=== PATIENT | female | born 1950 | race Hispanic/Latino ===

== ENCOUNTER 2016-11-07 11:53 | Inpatient (IN) | payer SELFPAY ==
[~2016-11-07] VITALS: Ht 175.3 cm; Wt 95.5 kg
[2016-11-07 11:53] VITALS: BP 101/88; PULSE 58; RESP 20; O2SAT 96
--- NOTE | 2016-11-07 12:00 | ED.REPORT ---
HPI-Extremity Problem Lower Date of Service Nov 07, 2016 ED Provider: Dev Hendrix MD Patient is a 65 year old female who presents to the ED via EMS s/p tripping and falling, landing on her L hip on concrete just prior to arrival. She complains of L hip pain and trouble standing. She did not hit her head. She denies neck pain, back pain, LOC, headache, numbness, tingling, or any other symptoms. She is not on blood thinners. Nursing Notes Stated Complaint: LEFT HIP PAIN Chief Complaint: Multiple Trauma/Fall Nursing Notes Reviewed: Yes Allergies: Coded Allergies: No Known Allergies (Unverified , 11/07/16) General Time Seen by MD: 11:58 Chief Complaint Hip injury left Hx Obtained From: Patient, Daughter Arrived By: Ambulance Onset Occurred: Just prior to arrival Symptom Duration: Since onset Location: : Hip left Quality: Painful Severity: Current: Severe Severity: Maximum: Severe Exacerbated by: Range of motion Immunizations: Unknown Past Medical History Past Medical History None reported Past Surgical History None reported Smoking History Unknown if Ever Smoker Social History Other Social History: Good social support Review of Systems Review of Systems Note: -tingling Musculoskeletal: Reports: Joint pain, Denies: Back pain, Neck pain Neurologic: Denies: Change LOC, Headache, Numbness Complete sys rev & neg: except as marked. Physical Exam Initial Vital Signs Vital Signs (First) Date Time Temp Pulse Resp B/P Pulse Ox O2 Delivery O2 Flow Rate FiO2 11/07/16 11:53 36.4 58 20 101/88 96 Room Air Initial VS: Reviewed, Vital signs normal Head / Eyes: Atraumatic, Normocephalic Neck: Supple, Full range of motion Respiratory: Breath sounds normal, Clear to auscultation, No respiratory distress Cardiovascular: Regular rate & rhythm, Heart sounds normal, Intact distal pulses Abdomen / GI: Soft, Non-tender, No distention Skin: Warm, Dry Neurologic: Alert, Oriented, Nonfocal Psychiatric: Mood/affect normal, Behavior normal, Normal thought content Lower Extremity / Pelvis / MS: Neurologic intact, Vascular intact Obvious deformity of the L femur with shortening of L leg. Sensation intact bilaterally. Ankle / Foot: No deformity, Neurologic intact, Vascular intact Good DP/PT pulses bilat Interpretation & Diagnostics Lab Results Interpretation Result Diagram: 11/07/16 1202 11/07/16 1202 Test 11/07/16 12:02 White Blood Count 9.9th/mm3 (3.8-10.1) Red Blood Count 4.13mil/mm3 (3.90-5.20) Hemoglobin 13.1g/dL (12.0-15.6) Hematocrit 38.6% (35.0-46.0) Mean Corpuscular Volume 93.5fL (81-100) Mean Corpuscular Hemoglobin 31.7pg (27.0-35.0) Mean Corpuscular Hemoglobin Concent 33.9% (32.0-37.0) Red Cell Distribution Width 12.3% (12.3-15.4) Platelet Count 391bil/L (150-400) Neutrophils (%) (Auto) 54.0% (40-74) Lymphocytes (%) (Auto) 34.7% (14-46) Monocytes (%) (Auto) 7.2% (4-12) Eosinophils (%) (Auto) 3.4% (0-5) Basophils (%) (Auto) 0.5% (0-3) Prothrombin Time 9.9sec (8.1-12.5) Prothromb Time International Ratio 0.93ratio Sodium Level 137mEq/L (134-144) Potassium Level 3.7mEq/L (3.5-5.2) Chloride Level 95mEq/L (97-108) Carbon Dioxide Level 20mmol/L (18-29) Blood Urea Nitrogen 23mg/dL (8-27) Creatinine 0.85mg/dL (0.57-1.00) Estimat Glomerular Filtration Rate 96mL/min (>59) Glucose Level 227mg/dL (60-99) Calcium Level 10.4mg/dL (8.5-10.1) Total Bilirubin 0.3mg/dL (0.0-1.2) Aspartate Amino Transf (AST/SGOT) 25U/L (0-50) Alanine Aminotransferase (ALT/SGPT) 18U/L (0-32) Alkaline Phosphatase 110U/L (25-165) Total Protein 8.0g/dL (6.4-8.4) Albumin 4.6g/dL (3.4-5.0) Parathyroid Hormone (Intact) 54pg/mL (15-65) ECG Interpretation ECG Interpretation: sinus 60 L axis deviation no ST segment changes no T-wave abnL no prior Time: 13:20 Interpreted by: ED physician X-Ray Interpretation Xray Interpretation: IMPRESSION: Comminuted proximal femoral shaft fracture. Dictated by: Santo Clark M.D. on 11/07/2016 at 12:34 Approved by: Santo Clark M.D. on 11/07/2016 at 12:39 X-Ray Ordered: Hip left Interpretation / Wet Read by: Interpret - Radiologist Re-Eval/Medical Decision Med Decision/Clinical Course Patient is a 65 year old female who presents to the ED via EMS s/p tripping and falling, landing on her L hip on concrete just prior to arrival. She complains of L hip pain and trouble standing. She did not hit her head. She denies neck pain, back pain, LOC, headache, numbness, tingling, or any other symptoms. She is not on blood thinners. Here in the emergency department the patient was afebrile with stable vital signs and examination as above. Of note, she has obvious deformity of her left femur with shortening of her left leg. She has neurovascularly intact in the affected extremity with palpable DP and PT pulses. Plain films were obtained as below: Comminuted proximal femoral shaft fracture. Laboratory studies were obtained as below: CBC unremarkable CMP unremarkable Coag studies normal EKG: sinus 60 L axis deviation no ST segment changes no T-wave abnL no prior The above findings were discussed with orthopedic surgery Dr. Lopez. Dr. Lopez evaluated the patient at the bedside and would like to perform operative intervention tomorrow morning. She has requested that the patient be admitted to the hospitalist service. She was discussed with admitting hospitalist accepted for further management. At this time, I see no findings suggestive of other acute traumatic injuries. She did not strike her head or lose consciousness and did not feel that neuro imaging studies are indicated. Patient remained without signs of acute compartment syndrome or neurovascular compromise during my involvement in her care. Re-Evaluation/Progress : Time of Eval: 12:47 Re-Evaluation/Progress Note: Discussed plan for admission. Patient understands and agrees with plan. All questions addressed at this time. Consultation #1: Referral / Consult Name: Cachorro Lopez MD Consulted With: Orthopedic Call Returned at: 12:50 Note: Discussed pt's case. Would like images sent to her. Consultation #2: Referral / Consult Name: Cachorro Lopez MD Call Returned at: 13:25 Note: Agrees to consult. Will take pt to surgery tomorrow. Consultation #3: Referral / Consult Name: Sarai Garcia DO Consulted With: Hospitalist Call Returned at: 13:35 Tool Trouble Shooter: Will see patient, Agrees with eval, Agrees with plan, Accepts admit Note: Discussed pt's case. Accepts admit. Counseled Regarding: Diagnosis, Lab results, Need for admission Discharge & Departure Impression: Primary Impression: Left femoral shaft fracture Encounter type: initial encounter Fracture type: closed Fracture morphology : unspecified fracture morphology Qualified Code: S72.302A - Unspecified fracture of shaft of left femur, initial encounter for closed fracture Additional Impressions: Fall from ground level Posttraumatic pain Disposition: ADMITTED TO HOSPITAL Discharge Condition All VS Reviewed: Yes Condition: Stable Scribe Attestation Portions of this note were transcribed by Margi Paz. I, Dr. Hendrix personally performed the history, physical exam and medical decision-making; I reviewed and confirmed the accuracy of the information in the transcribed note. Signed: Liss Plaza, 11/07/16 Dev Hendrix MD Nov 07, 2016 12:00 MARGI PAZ Nov 07, 2016 12:48
[2016-11-07 12:23] LABS: BASOPHILS % (AUTO) 0.5 % (0-3); EOSINOPHILS % (AUTO) 3.4 % (0-5); MONOCYTES % (AUTO) 7.2 % (4-12); Mean Corpuscular Hemoglobin 31.7 pg (27.0-35.0); Mean Corpuscular Volume 93.5 fL (81-100); Platelet Count 391 bil/L (150-400)
[2016-11-07] MEDS ORDERED: HYDROmorphone 1 mg/mL Inj IVPUSH ONE (12:40)
--- NOTE | 2016-11-07 12:41 | DRSVH ---
PROCEDURE: X-RAY LEFT HIP COMPLETE, MINIMUM TWO VIEWS ([id number]) INDICATIONS: pain/trauma TECHNIQUE: 2 views of the hip were acquired. COMPARISON: None. FINDINGS: Bones: There is a comminuted fracture in the proximal femoral shaft with angulation and displacement. No suspicious bony lesions. The visualized pelvic ring appears intact. Soft tissues: No suspicious soft tissue calcifications or masses. IMPRESSION: Comminuted proximal femoral shaft fracture. Dictated by: Santo Clark M.D. on 11/07/2016 at 12:34 Approved by: Santo Clark M.D. on 11/07/2016 at 12:39
[2016-11-07] MEDS ORDERED: Alum-Mag Hydrox-Simeth 30 mL Suspension PO PRN (12:45)
[2016-11-07 12:57] LABS: INR 0.93 ratio
[2016-11-07 12:59] VITALS: BP 93/54; PULSE 74; RESP 20; O2SAT 99
[2016-11-07] MEDS: Ondansetron 2 mg/mL 2 mL Inj IVPUSH PRN ×2 (13:02→18:13)
[2016-11-07] MEDS ORDERED: HYDROmorphone 0.5 mg/0.5 mL iSecure Syringe IVPUSH ONE (13:25)
[2016-11-07] MEDS ORDERED: HYDROcodone-APAP 5-325 mg Tablet PO PRN (13:40)
[2016-11-07] MEDS ORDERED: Polyethylene Glycol (PEG) 17 Gm Powder PO PRN (13:40)
[2016-11-07] MEDS ORDERED: Glucose 40% Oral Gel 15 Gm Tube PO PRN (13:45)
[2016-11-07 14:08] VITALS: BP 112/60; PULSE 88; RESP 20; O2SAT 93
--- NOTE | 2016-11-07 15:42 | NUR ---
Arrival to 1029 Pt arrival at [address] Lopez met patient in xray. Pt was comfortable on stretcher, denied pain greater than 2/10 but was immediately in severe pain with transfer. 2mg IV Morphine given at this time, pain decreased from 9/10 to 2/10. Dr. Garcia at bedside doing admission so nursing admission delayed at this time. Selby catheter placed for pt comfort/perioperative use. Pt is general diet at this time with plan to have surgery tomorrow. NPO at midnight. Per Dr. Garcia, Losartan to be held in the AM prior to surgery. improvement rn used.
[2016-11-07] MEDS ORDERED: METF850T2 PO (16:01)
[2016-11-07] MEDS ORDERED: OLME20TA3 PO (16:01)
--- NOTE | 2016-11-07 16:23 | DRSVH ---
PROCEDURE: X-RAY RIGHT FEMUR, TWO VIEWS ([id number]) INDICATIONS: Left femur fracture. TECHNIQUE: 2 views of the femur were acquired. COMPARISON: [facility], CR, XR FEMUR 2VW LT, 11/07/2016, 13:58. FINDINGS: Bones: No fractures or dislocations. No suspicious bony lesions. Soft tissues: No suspicious soft tissue calcifications or masses. IMPRESSION: Intact right femur. Dictated by: Santo Clark M.D. on 11/07/2016 at 16:19 Approved by: Santo Clark M.D. on 11/07/2016 at 16:21
--- NOTE | 2016-11-07 16:28 | DRSVH ---
PROCEDURE: X-RAY LEFT FEMUR, TWO VIEWS ([id number]) INDICATIONS: FRACTURE TECHNIQUE: 2 views of the femur were acquired. COMPARISON: [facility], CR, XR HIP 2VW LT, 11/07/2016, 12:06. FINDINGS: Bones: There is a comminuted fracture in the proximal to mid femoral shaft with a large butterfly fr agment and impaction/angulation/displacement. A functional lucency is noted in the proximal tibia. Soft tissues: No suspicious soft tissue calcifications or masses. IMPRESSION: 1. Comminuted proximal to mid femoral shaft fracture. 2. No additional lucency in the proximal tibia. Cannot rule out a fracture. Recommend 2 knee x-ray fu rther evaluation. Dictated by: Santo Clark M.D. on 11/07/2016 at 16:21 Approved by: Santo Clark M.D. on 11/07/2016 at 16:26
[2016-11-07] MEDS ORDERED: Heparin 5,000 Unit/mL Inj SUBQ SCH (16:30)
--- NOTE | 2016-11-07 16:45 | PCM.HPMED ---
Subjective Date of Service Nov 07, 2016 Primary Provider: Admitting Physician: Primary Care Physician: Trudy Attending Physician: Admit Status: From the Emergency Department, Admit to Red Team Chief Complaint: L Hip Fracture History of Present Illness: 65-year-old Mrs. John with past medical history of hypertension and diabetes, possible sleep apnea is presenting to the ER after suffering a fall this morning at 11 AM she states that she was trying to get up this stairs to go to a sidewalk when her legs gave in and she fell. She has had falls before but never this bad. She has never had fractures the exception of a coccygeal fracture during her second 30 years ago. She is endorsing severe pain as she was just moved from the ER to her hospital floor. She had to be medicated with morphine 2 mg for this interview to happen. This interview was done with the help of a paint factory worker online. Patient states she does not have any altered sensation, she does feel that her left foot is a little bit colder than the right foot. She feels that her hypertension and diabetes are well controlled on her current medications, she has taken the am medications. She denies any heart history, thyroid disease. She does snore according to her daughter and may have sleep apnea. In the ER x-ray of left hip showed a comminuted proximal femoral shaft fracture. Films of both her femur are taken but results are pending at this time. Her blood glucose was 227 hemoglobin is 9.9 blood pressure was on the lower side 93/54. She was given given 1 mg of Dilaudid for pain control. Patient states that she has recently gotten over a cold in the September. Patient is admitted to the red team with orthopedic consult for management of left hip fracture Review of Systems: Complete review of systems performed, pertinent positives and negatives per history of present illness, all other systems reviewed and are negative. Allergies Coded Allergies: No Known Allergies (Unverified , 11/07/16) Home Medications Metformin, Benicar PMH Diabetes, hypertension, possible sleep apnea, Coccygeal fracture did not require surgical intervention Surgical History breast fibroid removal, tonsillectomy Family History Mother is alive and healthy, dad then the patient was 8 months old with kidney and heart disease Daughter states that they have extensive history of kidney disease in the family Social History Occupation: retired medical records Hx Alcohol Use: No Hx Substance Use: No Hx Tobacco Use: No Smoking Status: Unknown if Ever Smoker Living Arrangement: with Family Additional Information 1 son in [place], Daugther lives in , Pt is from [place] Exam Vital Signs Vital Sign - Last Date Time Temp Pulse Resp B/P Pulse Ox O2 Delivery O2 Flow Rate FiO2 11/07/16 12:59 36.4 74 20 93/54 99 Room Air Exam General: No acute distress, appropriately interactive HEENT: Normocephalic, atraumatic. External ears without defect. Pupils equal, round, and reactive to light and accommodation. Anicteric sclerae, moist conjunctivae, and no lid lag. Oropharynx free of erythema and cobble stoning with moist mucosa. Neck: Large neck Supple with full range of motion. No jugular venous distension. No bruits. No lymphadenopathy or thyromegaly. Cardiovascular: Regular rate and rhythm with no murmurs, rubs, or gallops appreciated Pulmonary: Clear to auscultation bilaterally with no crackles, wheezes, or rhonchi. Normal respiratory effort with no use of accessory muscles.. On the anterior auscultation was done due to pain and patient's inability to get up Abdomen: Bowel tones present. Soft, mildly tender diffusely, nondistended. No hepatosplenomegaly or masses appreciated. Extremities: No clubbing, cyanosis, edema, or lymphadenopathy appreciated.. She is moving her right extremity slightly without pain, left extremity is externally rotated Skin: Normal temperature, turgor, and texture; no rash, ulcers, or subcutaneous nodules appreciated. Neurological: No focal deficits, no known sensory impairment Psychiatric: Normal mood and affect. Alert and oriented to person, place, and time. Vascular: Pedal pulses are lower in the left foot Lab and Diagnostics Result Diagram: 11/07/16 1202 11/07/16 1202 Assessment & Plan This is a 65-year-old pleasant female from [place] who was visiting her daughter in the when she suffered a left femur fracture. She is being admitted with orthopedic consult with Dr. Lopez. She is expected to undergo an operation early tomorrow a.m. Assessment #1 left hip fracture, present on admission acute -- X-ray showed comminuted, proximal, femoral shaft fracture -- Pain control with morphine 2-4 mg every 3 hours as needed for severe pain -- Hydrocodone acetaminophen every 4 hours for moderate pain -- Excessive femur right and left are ordered and result is pending -- Consult orthopedics, a plan to do surgery tomorrow a.m. -- Selby catheter to gravity -- Type and screen has done -- Crossmatched 2 units -- No heparin per Dr. Lopez, as she plans to take patient to the OR early in the a.m. -- Nothing by mouth after midnight, hold hypertension meds before surgery -- Social work referral Assessment #2 chronic diabetes uncontrolled -- Pt had elevated BG at admission -- Hold metformin by mouth at home medication -- No sliding scale -- A1c is ordered Assessment #3 hypertension chronic presumed stable -- Patient has taken am medications -- We will hold Benicar to after the surgery Assessment #4 possible sleep apnea, chronic present on admission -- We will watch for oxygen desaturation nighttime especially with pain meds on board -- Continue to monitor CODE STATUS: Patient was unable to decide, which makes her full code Alternate decision-maker: Daughter High risk medication: Morphine IV Disposition: Patient is probably going to need SNIF placement for recovery following her surgery, however she is not from the [facility]. This may present with some issues with placement. We will consult social work Pain Evaluation: Adequate Pain Control Resuscitation Status: CPR: Attempt Resuscitation (patient was unable to answer the question) Time spent 45 minutes Sarai Garcia DO Nov 07, 2016 13:40
[2016-11-07] MEDS: 0.9% Sodium Chloride 1,000 ML IV SCH (16:46)
[2016-11-07 17:02] LABS: APPEARANCE,URINE CLEAR (CLEAR,HAZY); COLOR,URINE YELLOW (YELLOW); OCCULT BLOOD,URINE NEGATIVE (NEGATIVE); UROBILINOGEN,URINE NORMAL (NORMAL)
--- NOTE | 2016-11-07 17:22 | CONS ---
[address] [address] CONSULTATION REPORT PATIENT: CHERYL ROSEN : 1950 MR#: [id number] ADMIT: 11/07/2016 JOB ID: [id number] ORTHOPEDIC CONSULTATION: DATE OF SERVICE: 11/07/2016 CPT CODE: 75201-77 (decision for surgery) CHIEF COMPLAINT: This is a 65-year-old, Israeli female who was visiting relatives in [place], and had a ground level fall today, sustaining a comminuted left proximal one-third to midshaft femoral fracture. There was no actual loss of consciousness. The patient is a non-insulin dependent diabetic. I was asked to see this patient in Orthopedic consultation by Dr. Sarai Garcia from the hospital service and Dr. Hendrix from the emergency department. Medical history is somewhat limited and will need to try and obtain some more information from the daughter who does speak Russian. Her daughter states that she does take a pill for her diabetes. PAST MEDICAL HISTORY: They did not report any particular surgery. She evidently does have good social support here while visiting relatives and she also has social support in [employer]. REVIEW OF SYSTEMS: HEENT: No headache or dizziness. No blurring of vision. Respiratory: No shortness of breath. Cardiovascular: No chest pain. GI: No nausea or vomiting. : No dysuria. Musculoskeletal: Left femur pain, status post fracture. Hematologic: No easy bleeding or bruising. Psychiatric: No obvious anxiety or depression. PHYSICAL EXAMINATION: A 175 cm female, 95 kg. The patient is lying in bed. Left leg is shortened and internally rotated. The fracture is closed. Peripheral pulses are full. Motor and sensory testing intact. LABORATORY TESTING: White count 9900. Hemoglobin 13.1, hematocrit 38.6. Sodium 137, potassium 3.7, chloride 95, CO2 20, BUN 23, creatinine 0.85. Random glucose at 227. Calcium at 10.4. Liver function tests within normal limits. PT 9.9, INR 0.93. Platelet count 391,000. IMAGING: X-rays show that she has a comminuted left proximal one-third to midshaft femoral fracture. IMPRESSION: Comminuted left midshaft to proximal one-third femoral shaft fracture with a large butterfly fragment. PLAN: The patient will be kept n.p.o. after midnight. We will plan for open reduction and internal fixation, with a locked femoral harvey tomorrow. She will need preoperative hydration and control of her diabetes. The patient is aware through [place] interpretation of the risks for bleeding, infection, pain, and stiffness, as well as the fact that this fracture may take quite some time to heal. The goal will be to transfix the fracture so that she may be mobilized out of bed to chair. She will receive preoperative IV Ancef 2 g IV as well as plans for TXG preoperatively just before surgery and at the end of the surgery to decrease the risk for bleeding. Will have the patient sign a surgical consent in [place]. cc: [facility] Orthopedics
[2016-11-07] MEDS: Insulin LISPRO 300 Unit/3 mL Inj SUBQ SCH ×2 (17:28→22:05)
--- NOTE | 2016-11-07 18:07 | DRSVH ---
PROCEDURE: X-RAY CHEST ONE VIEW, PORTABLE ([id number]) INDICATIONS: PRE OP TECHNIQUE: One view of the chest was acquired. COMPARISON: None. FINDINGS: Surgical changes and devices: None. Lungs and pleura: Mild interstitial prominence. No pleural effusions or pneumothorax. Lungs are jose ar. Mediastinum: Mediastinal contours appear normal. Heart size is normal. Bones and chest wall: No suspicious bony lesions. Overlying soft tissues appear unremarkable. IMPRESSION: No acute cardiopulmonary disease. Dictated by: aSnto Clark M.D. on 11/07/2016 at 18:05 Approved by: Santo Clark M.D. on 11/07/2016 at 18:05
[2016-11-07 19:32] VITALS: BP 128/73; PULSE 96; RESP 17; O2SAT 93
[2016-11-07 21:15] VITALS: BP 105/71; PULSE 103; RESP 18; O2SAT 92
[2016-11-08] VITALS (14 sets, daily range): BP systolic 107–120; BP diastolic 58–79; PULSE 73–100; RESP 12–18; O2SAT 94–99
--- NOTE | 2016-11-08 06:01 | NUR ---
Pain/ Education/ Ortho Checks Pt. was given education on ortho checks, and education on NPO status at midnight. Tamazight interperter used during communication. Pt. reported pain, and IV morphine given and effective. Will continue to monitor.
[2016-11-08 06:28] LABS: BASOPHILS % (AUTO) 0.2 % (0-3); EOSINOPHILS % (AUTO) 1.1 % (0-5); MONOCYTES % (AUTO) 7.3 % (4-12); Mean Corpuscular Hemoglobin 32.2 pg (27.0-35.0); Mean Corpuscular Volume 94.6 fL (81-100); Platelet Count 296 bil/L (150-400)
[2016-11-08] MEDS ORDERED: fentaNYL-PF 50 mCg/mL 2 mL Inj ONE (08:16)
[2016-11-08] MEDS ORDERED: HYDROmorphone 1 mg/mL Inj ONE (08:16)
[2016-11-08] MEDS ORDERED: Phenylephrine/NS 100 mCg/mL 10 mL Syringe IVPUSH ONE (08:21)
[2016-11-08] MEDS ORDERED: Rocuronium 10 mg/mL 5 mL Inj ONE (08:21)
[2016-11-08] MEDS ORDERED: Propofol 10,000 mCg/mL 20 mL Inj ONE (08:21)
[2016-11-08] MEDS ORDERED: Ondansetron 2 mg/mL 2 mL Inj ONE (08:21)
[2016-11-08] MEDS ORDERED: Succinylcholine Chloride 20 mg/mL 5 mL Inj ONE (08:21)
[2016-11-08] MEDS: Insulin LISPRO 300 Unit/3 mL Inj SUBQ SCH ×4 (08:26→22:00)
[2016-11-08] MEDS: 0.9% Sodium Chloride 1,000 ML IV SCH (09:37)
--- NOTE | 2016-11-08 09:44 | DRSVH ---
PROCEDURE: X-RAY LEFT KNEE, THREE VIEWS ([id number]) INDICATIONS: PAIN/ INTERNALLY ROTATED TECHNIQUE: 4 views of the knee were acquired. COMPARISON: None. FINDINGS: Bones: No fractures or dislocations about the knee itself. The patient's known proximal femoral frac ture is partially seen. Well corticated air calcification adjacent to the lateral epicondyle consiste nt with a benign congenital finding or the sequelae of remote trauma. Soft tissues: Small joint effusion. No suspicious soft tissue calcifications. IMPRESSION: Small joint effusion. Partially visualized proximal left femoral fracture. Dictated by: Vinay Gómez M.D. on 11/08/2016 at 9:40 Approved by: Vinay Gómez M.D. on 11/08/2016 at 9:43
--- NOTE | 2016-11-08 09:46 | DRSVH ---
PROCEDURE: X-RAY FEMUR, 1 VIEW LEFT INDICATIONS: PRE OPERATIVE CHECK TECHNIQUE: Single view of the femur were acquired. COMPARISON: None. FINDINGS: Bones: Improved alignment of a complex comminuted proximal left femoral metaphyseal fracture with med ial distraction of a butterfly fragment and medial angulation of the distal fragment. Soft tissues: No suspicious soft tissue calcifications or masses. IMPRESSION: Improved alignment of a proximal left femoral metaphyseal fracture. Dictated by: Vinay Gómez M.D. on 11/08/2016 at 9:43 Approved by: Vinay Gómez M.D. on 11/08/2016 at 9:44
--- NOTE | 2016-11-08 10:20 | PCM.HPANE ---
Patient Data Surgeon Admitting Provider:Sarai Garcia DO Attending Provider:Sarai Garcia DO Primary Care Physician:Trudy Other Provider: Reason for Visit Left Femur Fracture Ht/WT & BMI Height (Feet): 5 Height (Inches): 9.00 Weight (Kilograms): 95.450 Body Mass Index 31.17 Allergies Coded Allergies: No Known Allergies (Unverified , 11/07/16) Past Anesthesia History Anesthesia History: Denies:: Anesthesia Reactions Diabetes History Hx Diabetes?: No Current Bedside Blood Glucose: 238 MRSA MRSA: No Medications Reported Medications Olmesartan (Benicar)20 Mg [id number] Mg PO DAILY Ref 0 11/07/16 Metformin 850 Mg [id number] Mg PO BID Ref 0 11/07/16 History History of ENT Problems?: No HEENT History: Denies:: Cataracts Dysphagia Glaucoma Sinus Problem Denture Type: None Teeth Condition: Tooth Decay Inflamed Gums Missing Teeth Hx of Heart Problems?: No Cardiovascular History: Denies:: Congestive Heart Failure Hypertension Hx of Respiratory Problem?: No Respiratory History: Denies:: Asthma Pneumonia Tuberculosis Hx Neurologic Problems?: No Neurological History: Denies:: Alzheimer's Disease CVA Dementia Dizziness Headaches Seizures Hx of GI Problems?: No Other History/Comment Uncontrolled DM. Glusose > 280 early am prior to transport to OR. 2 units of Insulin were given. Glucose rechecked immediately prior to OR, 237. Regular insulin 5 units given SQ after induction, during draping. Hx of Problems?: No Genitourinary History: Denies:: Kidney Stones Urinary Tract Infection Female Hx: Positive for:: Problems with Breasts? (FIBROID RIGHT BREAST) Denies:: Currently Endometriosis Pelvic Inflammatory Hx Musculoskeletal Problems?: No Musculoskeletal History: Denies:: Back Injury Musculoskeletal Trauma Hx of Psycho/Social Problems?: No Psycho Social History: Denies:: Anxiety Bipolar Disorder Hx Depression Suicide Attempt Hx Surgeries?: No Hx Any Other Health Problems?: No Other History: Denies:: Cancer Hospitalization Thyroid Disease History Blood Transfusions: Positive for:: Accept Blood Products? Denies:: Blood Transfuse Reaction Blood Transfusions Hx Diabetes: NoBedside Blood Glucose: 238 Occupation: retired medical records Hx Alcohol Use: NoHx Substance Use: No Smoking Status: Unknown if Ever Smoker Stop/Bang Treated for Sleep Apnea?: No Do You Have a CPAP Machine?: No S-Snoring: Do You Snore Loudly: Yes T-Tired: feel tired, fatigued: No O-Obsered: Observed not breath: No P-Blood Pressure: treated: Yes B- Body Mass Index > 35 kg/m2: No A- Age over 50: Yes N- Neck Large Circumference: No G- Gender Male: No TIFFANY Total Score: 2 TIFFANY Risk Assessment: High Risk, =/>3 Yes Risk Assessment Category Category 1A: Patient has history of documented sleep apnea, and HAS NOT received any narcotic, sedative or anesthesia administration during this stay. Category 1B: Patient has history of documented sleep apnea, and HAS received any narcotic , sedative or anesthesia administration during this stay Category 2: Patient has SUSPECTED Obstructive Sleep Apnea, and HAS received any narcotic , sedative or anesthesia administration during this stay. Category 3: Patient has SUSPECTED Obstructive Sleep Apnea and HAS NOT received narcotic, sedative or anesthesia administration during this stay. Category 4: Outpatient in Procedural Areas with known sleep apnea or who screen positive for High Risk via the STOP/BANG questionnaire. Exam Exam Vital Signs Vital Signs Date Time Temp Pulse Resp B/P Pulse Ox O2 Delivery O2 Flow Rate FiO2 11/08/16 09:34 36.8 81 18 120/75 96 Room Air 11/08/16 06:15 36.7 86 16 120/74 95 Room Air General Appearance: Alert, Oriented X3, Cooperative, No Acute Distress HEENT/AIRWAY: MP 2, Neck Movement Lungs: Clear to Auscultation, Normal Air Movement Heart: Exam Unremarkable, Regular Rate/Rhythm, No Murmurs/Rubs/Gallops Meds/Labs/Diagnostics Admission Meds Current Medications Hydromorphone HCl 1 mg 1 mg ONCE ONCE IVPUSH Last administered on 11/07/16 12 :50; Start 11/07/16 at 12:40; Stop 11/07/16 at 12:41; Status DC Sodium Chloride (Normal Saline) 1,000 ml @ 50 mls/hr Q20H IV Last administered on 11/07/16 16:46; Start 11/07/16 at 13:37 Insulin Human Lispro (HumaLOG Insulin Inj) Nutritional Dose to be given pr... [facility] SUBQ Last administered on 11/08/16 08:26; Start 11/07/16 at 17:30 Bedside Blood Glucose: 238 Labs Test 11/07/16 12:02 8/26/17 13:45 11/07/16 15:35 11/08/16 06:00 Prothrombin Time 9.9sec (8.1-12.5) Prothromb Time International Ratio 0.93ratio Parathyroid Hormone (Intact) 54pg/mL (15-65) Urine Color Yellow (YELLOW) Urine Appearance Clear (CLEAR,HAZY) Urine pH 5.0 (5.0-8.0) Urine Specific Riparius 1.030 (1.003-1.035) Urine Protein Negativemg/dL (NEG,TRACE) Urine Glucose (UA) 100mg/dL (NEGATIVE) Urine Ketones Tracemg/dL (NEGATIVE) Urine Occult Blood Negative (NEGATIVE) Urine Nitrite Negative (NEGATIVE) Urine Bilirubin Negative (NEGATIVE) Urine Urobilinogen Normalmg/dL (NORMAL) Urine Leukocyte Esterase Negative (NEGATIVE) Urine RBC 0-2/hpf (0-2) Urine WBC 0-5/hpf (0-5) Urine Epithelial Cells Few/hpf (NONE-MOD) Urine Crystals None seen (NONE SEEN) Urine Bacteria None/hpf (NONE-FEW) Urine Hyaline Casts None/lpf (NONE) Urine Granular Casts None seen (NONE SEEN) Urine Waxy Casts None seen (NONE SEEN) Urine Red Blood Cell Casts None seen (NONE SEEN) Urine White Blood Cell Casts None seen (NONE SEEN) Urine Mucus None seen (None Seen) Urine Trichomonas None seen (NONE SEEN) Urine Yeast None (NONE SEEN) Urinalysis Comment None Urine Culture Reflexed Not indicated White Blood Count 9.5th/mm3 (3.8-10.1) Red Blood Count 3.51mil/mm3 (3.90-5.20) Hemoglobin 11.3g/dL (12.0-15.6) Hematocrit 33.2% (35.0-46.0) Mean Corpuscular Volume 94.6fL (81-100) Mean Corpuscular Hemoglobin 32.2pg (27.0-35.0) Mean Corpuscular Hemoglobin Concent 34.0% (32.0-37.0) Red Cell Distribution Width 12.1% (12.3-15.4) Platelet Count 296bil/L (150-400) Neutrophils (%) (Auto) 78.0% (40-74) Lymphocytes (%) (Auto) 13.1% (14-46) Monocytes (%) (Auto) 7.3% (4-12) Eosinophils (%) (Auto) 1.1% (0-5) Basophils (%) (Auto) 0.2% (0-3) Sodium Level 131mEq/L (134-144) Potassium Level 4.7mEq/L (3.5-5.2) Chloride Level 94mEq/L (97-108) Carbon Dioxide Level 24mmol/L (18-29) Blood Urea Nitrogen 24mg/dL (8-27) Creatinine 0.81mg/dL (0.57-1.00) Estimat Glomerular Filtration Rate 101mL/min (>59) Glucose Level 277mg/dL (60-99) Calcium Level 9.5mg/dL (8.5-10.1) Total Bilirubin 0.4mg/dL (0.0-1.2) Aspartate Amino Transf (AST/SGOT) 21U/L (0-50) Alanine Aminotransferase (ALT/SGPT) 15U/L (0-32) Alkaline Phosphatase 87U/L (25-165) Total Protein 6.7g/dL (6.4-8.4) Albumin 4.1g/dL (3.4-5.0) Plan Impression Patient chart reviewed, patient interviewed and anesthestic plan with risks, benefits, and alternatives discussed, and informed consent obtained. NPO per Anesth. Guidelines: Yes ASA Physical Status: ASA3 Severe Disease Anesthetic Plan: GA Bene/Risks/Altern/Consents: Yes HP Complete Prior to Induction: Yes Odell Rushing MD Nov 08, 2016 10:20
[2016-11-08] MEDS ORDERED: Lactated Ringer's 1,000 ML IV ONE (10:34)
[2016-11-08] MEDS ORDERED: Bupivacaine-MPF 0.5% 30 mL Inj INFILTRATE ONE (11:52)
--- NOTE | 2016-11-08 11:56 | NUR ---
Off Unit to OR Patient off unit at approximately 1000 via bed, informed consent in Macedonian, signed and in chart. Pain well managed with 4mg IV morphine prior to positioning for x-ray.
[2016-11-08] MEDS ORDERED: Tranexamic Acid Inj 1,000 MG in 0.9% Sodium Chloride 100 ML IV ONE ×2 (12:00→15:00)
[2016-11-08] MEDS ORDERED: Lactated Ringer's 500 ML IV PRN (12:01)
[2016-11-08] MEDS ORDERED: HYDROmorphone 1 mg/mL Inj IVPUSH PRN ×2 (12:05→16:00)
[2016-11-08] MEDS ORDERED: EPHEDrine Sulfate 50 mg/mL Inj IVPUSH PRN (12:05)
[2016-11-08] MEDS ORDERED: Atropine 0.4 mg/mL Inj IVPUSH PRN (12:05)
[2016-11-08] MEDS ORDERED: MetoCLOpramide 5 mg/mL 2 mL Inj IVPUSH PRN (12:05)
[2016-11-08] MEDS ORDERED: Labetalol 5 mg/mL 20 mL Inj IV PRN (12:05)
[2016-11-08] MEDS ORDERED: Phenylephrine 10,000 mCg/mL Inj IVPUSH PRN (12:05)
[2016-11-08] MEDS ORDERED: Ondansetron 2 mg/mL 2 mL Inj IVPUSH PRN ×2 (12:05→16:00)
[2016-11-08] MEDS ORDERED: fentaNYL-PF 50 mCg/mL 2 mL Inj IVPUSH PRN (12:05)
[2016-11-08] MEDS ORDERED: Dexamethasone 4 mg/mL Inj IVPUSH PRN (12:05)
--- NOTE | 2016-11-08 13:45 | PCM.PNMED ---
Subjective Date of Service Nov 08, 2016 Subjective Patient is seen and examined. She is more alert and awake this a.m. she has no pain in her left knee other than her chronic arthritic pain in the joint. She understands that she will be undergoing a surgery, and she has suffered a large fracture. She has no other questions. Daughter was present in the room as well as Dr. Lopez, daughter's questions were answered Exam Vital Signs Vital Sign - Last Date Time Temp Pulse Resp B/P Pulse Ox O2 Delivery O2 Flow Rate FiO2 11/08/16 06:15 36.7 86 16 120/74 95 Room Air Intake and Output 11/07/16 11/07/16 11/08/16 Cumulative From/Thru 15:00 23:00 07:00 11/07/16 11:53 - 11/08/16 06:13 Intake Total 400 ml 677 ml 1077 ml Output Total 0 ml 0 ml Balance 400 ml 677 ml 1077 ml Intake Oral 400 ml 400 ml IV Total 677 ml 677 ml Output Urine Total 0 ml 0 ml Lab and Diagnostics Result Diagram: 11/08/16 0600 11/08/16 0600 Assessment & Plan This is a 65-year-old pleasant female from [place] who was visiting her daughter in the when she suffered a left femur fracture. She is being admitted with orthopedic consult with Dr. Lopez. She is expected to undergo an operation early tomorrow a.m. Assessment #1 left hip fracture, present on admission acute -- X-ray showed comminuted, proximal, femoral shaft fracture -- Pain control with morphine 2-4 mg every 3 hours as needed for severe pain -- Hydrocodone acetaminophen every 4 hours for moderate pain -- Excessive femur right and left are ordered and result is pending -- Consulted orthopedics, a plan to do surgery 11/08 -- Selby catheter to gravity -- Type and screen has done -- Crossmatched 2 units -- No heparin per Dr. Lopez, as she plans to take patient to the OR early in the a.m. -- Nothing by mouth diet -- Social work referral is placed -- Discussed x-ray of the left femur, Dr. Lopez is made aware of the recommendation to do 2 view knee x-ray. Femoral x-ray of the right and left showed no concern for acute fractures other than the one that was noted initially in the proximal femoral shaft Assessment #2 chronic diabetes uncontrolled -- Pt had elevated BG at admission -- Hold metformin by mouth at home medication -- sliding scale insulin -- A1c is ordered Assessment #3 hypertension chronic presumed stable -- Patient has taken am medications -- We will hold Benicar till after the surgery Assessment #4 possible sleep apnea, chronic present on admission -- We will watch for oxygen desaturation nighttime especially with pain meds on board -- Continue to monitor CODE STATUS: Patient was unable to decide, which makes her full code Alternate decision-maker: Daughter High risk medication: Morphine IV Disposition: Patient is probably going to need SNIF placement for recovery following her surgery, however she is not from the [facility]. This may present with some issues with placement. We will consult social work Pain Evaluation: Adequate Pain Control Resuscitation Status: CPR: Attempt Resuscitation (patient was unable to answer the question) Time spent 25 minutes Sarai Garcia DO Nov 08, 2016 08:41
[2016-11-08] MEDS: Lactated Ringer's 1,000 ML IV SCH ×2 (13:58→15:11)
--- NOTE | 2016-11-08 15:13 | NUR ---
Social Work- Initial Assessment Data: See Initial Assessment and Advance Directive Intervention for additional information. Order has been received for SNF placement at discharge. SW acknowledges order. SNF placement will be difficult for pt as she is from [place] and does not have insurance. Pt is a Uzbek speaking 65 year old female admitted 11/07/16 for left femur fracture per H&P. Pt has no insurance. Pt has no PCP. Pt has been visiting her daughter in [place] since July and was planning to return to [place] late November. Pt has been staying with her daughter in a home with no steps to enter. Pt's readmit risk score is not listed at this time. LIBERTAD met with pt's daughter Alivia [phone] at bedside regarding discharge plan, SW role explained. Pt was in surgery at this time. Pt's capacity for self-care assessed. Pt resides in [place] in a home alone. Pt is independent with ADLs and self-care at baseline. Pt uses no DME at baseline and only has crutches available for use. Pt does not drive. Pt has no history with HH services. Pt has no history with SNF services. Pt has no DPOA on file. Pt's daughter is the designated decision maker if necessary. SW discussed SNF recommendation and typical plan of care after a fracture. SW explained the barriers to pt's SNF placement regarding insurance. SW provided estimated private pay cost of $8,000-$10,000 dollars for a month of care at a facility. Informed pt's daughter that it is typically required to pay up front for these services. Pt's daughter has financial concerns. Provided sarah care application in Cuban and Uzbek. Also oriented pt's daughter to Patient Financial Services in the hospital, encouraged pt's daughter to set up an appointment and discuss financial plan. Daughter agreeable. SW provided Discharge planning Checklist and requested that pt contact [employer] if needs identified. SW provided phone number on whiteboard. PT will likely see pt after surgery. Pt's daughter agreeable. SW will continue to follow for d/c planning needs. Assessment: Pt who is independent with ADLs and self-care, who will likely need rehab after surgery. Plan: PT to evaluate pt after surgery. Pt will require private pay SNF, unclear if pt's daughter has the funds for this at this time. Pt's daughter aware of private pay costs. Provided sarah care application in Cuban and Uzbek. Also oriented pt's daughter to Patient Financial Services. SW will continue to follow for d/c planning needs. LOLA Estrada Addendum: 11/08/16 at 1521 by STEVE HERNANDEZ SS Amended: Links added.
--- NOTE | 2016-11-08 15:47 | DRSVH ---
PROCEDURE: X-RAY LEFT FEMUR, TWO VIEWS ([id number]) INDICATIONS: LEFT FEMUR REPAIR WITH C-ARM TECHNIQUE: 6 views of the femur were acquired. COMPARISON: [facility], , XR FEMUR 2VW LT, 11/07/2016, 13:58. FINDINGS: 6 images obtained with a mobile image intensifier demonstrating intramedullary harvey fixation and femor al neck screw placement across a proximal left femoral neck fracture. IMPRESSION: Mobile image intensifier images demonstrating surgical fixation of a left femoral neck fr acture. Dictated by: Vinay Gómez M.D. on 11/08/2016 at 15:45 Approved by: Vinay Gómez M.D. on 11/08/2016 at 15:46
[2016-11-08] MEDS ORDERED: Magnesium Hydroxide 10 mL Oral Concentration PO PRN (16:00)
[2016-11-08] MEDS ORDERED: diphenhydrAMINE 25 mg Capsule PO PRN (16:00)
[2016-11-08] MEDS ORDERED: HYDROcodone-APAP 7.5-325 mg Tablet PO PRN (16:00)
[2016-11-08] MEDS ORDERED: Polyethylene Glycol (PEG) 17 Gm Powder PO PRN (16:00)
[2016-11-08] MEDS ORDERED: Sodium Biphos-Phos 133 mL Enema RECTAL PRN (16:00)
[2016-11-08] MEDS: Sodium Chloride LOK Flush 10 mL Syringe IV SCH (16:30)
--- NOTE | 2016-11-08 16:40 | DRSVH ---
PROCEDURE: X-RAY LEFT FEMUR, TWO VIEWS ([id number]) INDICATIONS: POST PROTHESIS TECHNIQUE: 5 views of the femur were acquired. COMPARISON: [facility], CR, XR FEMUR 2VW LT, 11/08/2016, 11:21. [facility], CR, XR FEMUR 2VW LT, 11/07/2016, 13:58. FINDINGS: Bones: Interval placement of a left intramedullary femoral harvey and femoral neck screw fixation across a complex proximal left femoral metaphyseal fracture. Fracture alignment is now near anatomic. Soft tissues: No suspicious soft tissue calcifications or masses. IMPRESSION: Interval surgical fixation of a proximal left femoral metaphyseal fracture. Dictated by: Vinay Gómez M.D. on 11/08/2016 at 16:37 Approved by: Vinay Gómez M.D. on 11/08/2016 at 16:38
[2016-11-08] MEDS ORDERED: Insulin GLARgine 100 Unit/mL Syringe SUBQ SCH (17:04)
--- NOTE | 2016-11-08 18:01 | PCM.ANEP1 ---
Post Anesthesia PACU Phase 1 Assessment Vital Signs Vital Signs Date Time Temp Pulse Resp B/P Pulse Ox O2 Delivery O2 Flow Rate FiO2 11/08/16 17:07 84 11/08/16 16:51 36.7 80 16 114/74 94 Room Air 2.00 11/08/16 16:45 Supplement Oxygen 11/08/16 16:23 79 13 108/60 98 Nasal Cannula 2 11/08/16 16:13 87 14 114/58 98 Simple Mask 8 11/08/16 16:08 85 12 107/65 98 Simple Mask 8 11/08/16 16:04 92 16 111/71 98 Simple Mask 8 11/08/16 15:55 93 17 112/71 97 Simple Mask 8 11/08/16 15:48 37.1 93 17 111/64 97 Simple Mask 8 Anesthetic Administered: GA Level of Alertness: Awake, talking HILLMAN's with Equal Strength: No (surgery on left leg) Pain: No Pain Scale Score: 0 Nausea or Vomiting: No CV Function & Hydration Stable: Yes Airway Device: Endotrachial Tube Oxygen Delivery: Room Air Lungs: Clear to Auscultation, Normal Air Movement Dermatome Level: Full Sensation PACU Phase 2 Assessment Complications: No Follow up Care: N/A Patient Instructions Provided: Yes Odell Rushing MD Nov 08, 2016 18:01
--- NOTE | 2016-11-08 18:37 | NUR ---
ON UNIT FROM OR Patient back from OR at 1645 via bed. Sleepy but able to arouse with light touch, vocal commands. No pain, abx given in OR at 1520. Vital signs stable. 2L nasal cannula at 94% SCD on right leg, head of the bed 30 degrees, pulse ox in place. Blood sugar 219, 10 lantus given along with sliding scale. Placed on tele SR 80s. Per report bone specimen sent for pathology. Per Dr. Jessica hoyt and SCDs on unaffected leg only. Scobey checks within normal limits. Family at bedside.
--- NOTE | 2016-11-08 19:04 | OP ---
[address] [address] OPERATIVE REPORT PATIENT: CHERYL ROSEN : 1950 MR#: [id number] ADMIT: 11/07/2016 JOB ID: [id number] DATE OF SURGERY: 11/08/2016 SURGEON: Cachorro Lopez MD MEDIA TRAFFIC MANAGER: Eleazar Betts PA-C. Eleazar Betts was an integral portion of the procedure to help maintain with the reduction, traction and exposure for the procedure. PREOPERATIVE DIAGNOSIS(ES): Comminuted left proximal 3rd to mid shaft femoral fracture. ICD 10 code is S72.352A. POSTOPERATIVE DIAGNOSIS(ES): Comminuted left proximal 3rd to mid shaft femoral fracture. ICD 10 code is S72.352A. PROCEDURE: Open reduction, internal fixation, comminuted left proximal 1/3 to midshaft femoral fracture with large butterfly fragment. IMPLANTS UTILIZED: Synthes trochanteric femoral nail, 11 mm diameter x 360 mm length, 125 degree angle, 80 mm helical blade and a 40 and 50 mm distal locking interlock screws. INDICATIONS: This 65-year-old, female from [place] lives with her family, tripped and fell while walking, sustaining a comminuted left proximal 1/3 to midshaft femoral fracture. The patient has diabetes that is not insulin dependent, but her diabetes is not well controlled. Medical history is somewhat limited since the patient does not communicate medical issues routinely with her family in the [place]. ESTIMATED BLOOD LOSS: 400 mL. DRAINS: None. INTRAOPERATIVE ISSUES: The patient did have some issues with some hypotension that was corrected. She also had some EKG abnormalities that evidently also corrected, but she has been placed on telemetry postoperatively. Sponge and needle count correct. SPECIMENS: I did send a small specimen of bone from one of the guide pins to pathology to rule out potential pathologic fracture. PROCEDURE IN DETAIL: Under adequate general anesthesia, the patient was taken from her bed and placed into the [place] fracture table and both legs were placed in the traction boots. Traction was applied to the left leg. With the leg in a scissor technique, the fracture was radiographed. I was able to pull the fracture out to length, but there was still displacement on the medial and lateral direction. With some manipulation, I was able to improve the alignment. After appropriate time-out was called, the left hip was prepped and draped in sterile fashion. An incision was fashioned proximal to the greater trochanter. The patient had a relatively large amount of subcutaneous fatty tissue over the buttocks and her incision required being slightly longer than normal. Incision was carried down through the tensor fascia jorgito. She did have a fair amount of oozing immediately upon the skin incision with capillary bleeders and small arterial bleeders and these were coagulated. After the tensor fascia jorgito was incised, I was able to manually palpate the top of the greater trochanter. Utilizing the curved awl, I placed one guide pin in the greater trochanter and appropriate spot for lateral trochanteric entry femoral nail. I used a parallel guide to place one other guide pin and this was found to be much more centered on AP and lateral views. The other guide pin was removed. The large reamer was then utilized to open the femur. The guide pin was subsequently removed. A ball-tipped guide was then placed down the femur utilizing the reduction tool. There was still a medial and lateral shift between the proximal and distal fragments. Manually pushing on the fragments still did not reduce the alignment nor did using the F tool. I therefore made another incision more distally in the area where we would be placing the helical blade screw. I was then able to place a bone hook around the proximal fragment and then pull that laterally to meet the femoral distal fragment. With that in place, I was able use the reduction tool and passed the guide pin down the femoral shaft just to the superior aspect of the patella. I then measured the guide pin. Care was taken not to overdistract the femur. Utilizing cannulated reamers, the femoral canal was then reamed to a 12.5 mm to accommodate the 11 mm nail and we had good chatter at the end of the reaming. I then placed an 11 mm diameter nail x 125 mm angle harvey x 360 mm length down the canal. Adjustments needed to be made to position the proximal portion of the harvey for good placement of the helical blade and also to place it in the correct the anterior-posterior direction. The incision that was initially made to use for the bone hook on the proximal fragment was slightly enlarged in order to place the helical blade. The alignment guide for the helical blade was then placed in position. A guide pin was then drilled in the femoral neck and head. Again, some minor adjustments were required in order to make sure that the harvey was in the proper rotational alignment. The ball-tip guide was then removed. The prior incision that was utilized to manipulate the proximal fragment of the bone hook was then slightly enlarged in order to place the alignment jig for placement of the helical blade. The alignment jig was placed in down to the femur and positioned appropriately. A guide pin was then drilled and evaluated on AP and lateral views. It was then measured, the outer cortex was drilled, and an 80 mm helical blade was placed over the guide pin. It was in acceptable position on AP and lateral views with good bone stalk proximally. The guide pin was subsequently removed. The proximal portion of the harvey was then locked. Image intensification pictures confirmed good position of the harvey and screw in AP and lateral views. Traction was released so as not to overdistract the femur. The alignment jig was then subsequently removed from the femur. Attention was next turned to the distal interlock screws. Utilizing perfect circles with the C-arm image intensification, the most proximal static screw and the oblong dynamic screw hole were drilled and filled with appropriate length screws. Image intensification confirmed that the screws were within the perfect circles and through the harvey and through both cortices. Permanent x-rays were taken. During the procedure, the patient started to have some issues with hypotension and some EKG changes. At that point, just prior to placement for the distal interlock screws, I had my medical office receptionist assistant begin to close the proximal wound once that wound was thoroughly irrigated. Once that portion of the proximal wound was closed, she appeared to stabilize more with blood pressure as well as no other significant EKG changes. The remaining wounds were closed all with #1-0 and 2-0 Vicryl and the skin was reapproximated with antolin. Dry sterile dressings were applied. The patient was taken to recovery room in stable condition. Sponge and needle count correct. Permanent x-rays also taken with regular x-ray in recovery room. The patient was subsequently taken to the floor and placed on telemetry. Her blood pressure was stable. She also did have elevated blood sugars preoperatively and was treated with insulin. Latest blood sugar was approximately 219. The patient lives in [place]. She was accompanied by her family today who live here in the [facility]. She is going to require some assistance when she eventually returns to [place]. Her daughter states that they do have insurance and meets for assistance in [place], and I have indicated to her that she will definitely need some assistance with activities of daily living. The patient may be able to ambulate partial weightbearing about 50% of her body weight. I also informed the family that this fracture was a very significant fracture and could even be a pathologic fracture. I also informed them that this could be a long rehabilitative process. There is also the potential for delayed union, nonunion, and potential for even requirement for bone stimulator. Any further medical workup for even a potential pathologic fracture could be continued in [place]. The patient will remain here in the [facility] until she is stable for transport.
[2016-11-08] MEDS: Senna-Docusate 8.6-50 mg Tablet PO SCH (20:45)
[2016-11-09] VITALS (8 sets, daily range): BP systolic 107–120; BP diastolic 64–78; PULSE 78–128; RESP 16–20; O2SAT 92–97
[2016-11-09] MEDS: Sodium Chloride LOK Flush 10 mL Syringe IV SCH ×3 (00:33→16:25)
[2016-11-09] MEDS: HYDROcodone-APAP 5-325 mg Tablet PO PRN ×4 (01:08→17:12)
[2016-11-09] MEDS: 0.9% Sodium Chloride 1,000 ML IV SCH (05:37)
[2016-11-09 06:06] LABS: BASOPHILS % (AUTO) 0.4 % (0-3); EOSINOPHILS % (AUTO) 0.8 % (0-5); MONOCYTES % (AUTO) 10.7 % (4-12); Mean Corpuscular Hemoglobin 31.6 pg (27.0-35.0); Mean Corpuscular Volume 96 fL (81-100); NEUTROPHILS % (AUTO) 73 % (40-74); Platelet Count 249 bil/L (150-400)
--- NOTE | 2016-11-09 06:15 | NUR ---
Pain under control Pt. has been doing will with just position changes for pain management only needing pain medication once this shift.She has an IV running at 50mL/Hr. Order for Ortho's but it's very hard to move Pt. to complete so this was not done. Although Chinese speaking only she does communicate her needs.VSS and she is in good spirits. WCTM
[2016-11-09] MEDS: Insulin LISPRO 300 Unit/3 mL Inj SUBQ SCH ×4 (08:20→22:16)
--- NOTE | 2016-11-09 08:28 | PCM.PNORTH ---
Subjective Date of Service: Nov 09, 2016 Visit Information: Reason for Visit Left Femur Fracture Surgery/Surgery Date IM GERARD LEFT FEMUR 11/07/16 Post-Op Day # 1 Date of Admission: Nov 07, 2016 at 13:35 Hospital Day # Subjective Patient is a armenian speaking female whose daughter is with her today translating and asking questions on her behalf. Patient states her pain is well controlled and she is only uncomfortable because she has been in one position for too long. Patient has no concerns. Postop General: No Complaints, No Shortness of Breath, No Chest Pain, Good Appetite, Normal Bowel Movement Pain Management: PO Objective Exam Objective Patient laying in bed, daughter by bedside. Vital Signs and I/O Vital Sign - Last Date Time Temp Pulse Resp B/P Pulse Ox O2 Delivery O2 Flow Rate FiO2 11/09/16 08:01 37.1 78 18 107/66 92 Room Air 11/09/16 05:36 2.00 Intake and Output 11/08/16 11/08/16 11/09/16 Cumulative From/Thru 15:00 23:00 07:00 11/07/16 11:53 - 11/09/16 06:02 Intake Total 2620 ml 1100 ml 300 ml 5097 ml Output Total 1800 ml 1020 ml 1100 ml 3920 ml Balance 820 ml 80 ml -800 ml 1177 ml Intake Oral 400 ml 500 ml 300 ml 1600 ml IV Total 2220 ml 600 ml 3497 ml Output Urine Total 1400 ml 1020 ml 1100 ml 3520 ml Estimated Blood Loss 400 ml 400 ml Lab & Micro Results Laboratory Tests Test 11/08/16 16:02 11/09/16 05:40 Hemoglobin 9.5g/dL (12.0-15.6) 8.4g/dL (12.0-15.6) Hematocrit 28.6% (35.0-46.0) 25.6% (35.0-46.0) White Blood Count 8.4th/mm3 (3.8-10.1) Red Blood Count 2.66mil/mm3 (3.90-5.20) Mean Corpuscular Volume 96fL (81-100) Mean Corpuscular Hemoglobin 31.6pg (27.0-35.0) Mean Corpuscular Hemoglobin Concent 32.8% (32.0-37.0) Red Cell Distribution Width 12.2% (12.3-15.4) Platelet Count 249bil/L (150-400) Neutrophils (%) (Auto) 73% (40-74) Lymphocytes (%) (Auto) 15.1% (14-46) Monocytes (%) (Auto) 10.7% (4-12) Eosinophils (%) (Auto) 0.8% (0-5) Basophils (%) (Auto) 0.4% (0-3) Result Diagram: 11/09/16 0540 11/08/16 0600 General Appearance: Alert, Oriented X3, Cooperative, No Acute Distress Extremities: Distal Pulses Palpable, No Compartment Syndrom Noted, Thigh & Calf Soft/Nontender Postop Sensory Motor: Distal Motor Intact, Movement in Toes, Distal Sensation Intact, NVI Distally SURGICAL WOUND : Wound Location/Description Perioperative dressings c/d/i. Ice in place over incision. Assessment & Plan Impression POD#1 left hip long nail Problems: Plan Per Dr. Lopez's op note, a specimen was sent to pathology to assess for pathologic fracture vs osteoporotic. Will await those results. Weightbearin% weightbearing with a front wheeled walker DVT prophylaxis: Currently on Lovenox 40 mg subcutaneous daily Physical therapy for transfers, progressive ambulation, strengthening Wound care: Perioperative dressing will be changed to an island dressing tomorrow Analgesia: Continue oral analgesia. Discharge plan: Discharge home vs SNF in 1-2 days. Patient is from [place] and will likely need SNF placement in order to rehabilitate well enough to return to her home. Follow-up plan: In 2 weeks at [facility] with CINTIA for wound check and at [address] Lopez with x-rays Resuscitation Status: CPR: Attempt Resuscitation (patient was unable to answer the question) Vannesa Wasserman PA-C Nov 09, 2016 08:28
[2016-11-09] MEDS ORDERED: Insulin GLARgine 100 Unit/mL Syringe SUBQ SCH (08:30)
[2016-11-09] MEDS: Senna-Docusate 8.6-50 mg Tablet PO SCH ×2 (08:30→21:25)
[2016-11-09] MEDS: hydrOXYzine Pamoate 25 mg Capsule PO PRN ×3 (09:03→17:12)
--- NOTE | 2016-11-09 11:09 | NUR ---
Evaluation completed. Please go to "Notes" then click on "Assessments and Notes" (bottom left corner of screen). Then select appropriate discipline tab on top of screen.
--- NOTE | 2016-11-09 11:59 | PCM.PNMED ---
Subjective Date of Service Nov 09, 2016 Subjective Patient is seen and examined. She states that she is feeling fine pain is well under control just with oxycodone, not needing the morphine. Her questions were answered, interview was done with the help of assistant manager. Patient has seen the physical therapy already this a.m. Exam Vital Signs Vital Sign - Last Date Time Temp Pulse Resp B/P Pulse Ox O2 Delivery O2 Flow Rate FiO2 11/09/16 10:29 82 11/09/16 08:01 37.1 18 107/66 92 Room Air 11/09/16 05:36 2.00 Intake and Output 11/08/16 11/08/16 11/09/16 Cumulative From/Thru 15:00 23:00 07:00 11/07/16 11:53 - 11/09/16 06:02 Intake Total 2620 ml 1100 ml 300 ml 5097 ml Output Total 1800 ml 1020 ml 1100 ml 3920 ml Balance 820 ml 80 ml -800 ml 1177 ml Intake Oral 400 ml 500 ml 300 ml 1600 ml IV Total 2220 ml 600 ml 3497 ml Output Urine Total 1400 ml 1020 ml 1100 ml 3520 ml Estimated Blood Loss 400 ml 400 ml Exam Gen. Patient is in no acute distress, is able to talk with the help of online assistant manager. Oxygen 1 L via [place] HEENT: Normocephalic, atraumatic, large neck Heart: Regular rate and rhythm, no S3-S4 murmurs Lungs are clear to auscultation anteriorly Abdomen: Soft and obese, nontender to palpation Extremities: negative for swelling Vascular: Palpable pedal pulses Neurological: No focal deficits Psychiatric: No anxiety or agitation IVs and Medications Medications Reviewed: Medications were reviewed in detail Lab and Diagnostics Result Diagram: 11/09/16 0540 11/08/16 0600 Assessment & Plan This is a 65-year-old pleasant female from [place] who was visiting her daughter in the [place] when she suffered a left femur fracture. She is being admitted with orthopedic consult with Dr. Lopez. She is expected to undergo an operation early tomorrow a.m. Assessment #1 left hip fracture, present on admission acute -- X-ray showed comminuted, proximal, femoral shaft fracture -- Pain control with morphine 2-4 mg every 3 hours as needed for severe pain -- Hydrocodone acetaminophen every 4 hours for moderate pain -- Excessive femur right and left are ordered and result is pending -- Consulted orthopedics, a plan to do surgery 11/08 -- Selby catheter to gravity -- Type and screen has done -- Crossmatched 2 units -- No heparin per Dr. Lopez, as she plans to take patient to the OR early in the a.m. -- Nothing by mouth diet -- Social work referral is placed -- Discussed x-ray of the left femur, Dr. Lopez is made aware of the recommendation to do 2 view knee x-ray. Femoral x-ray of the right and left showed no concern for acute fractures other than the one that was noted initially in the proximal femoral shaft -- CT chest W contrast is ordered per Dr. Lopez she was concerned that her femur fracture was pathological, and Dr. Lopez is concerned about malignancy Assessment #2 chronic diabetes uncontrolled -- Pt had elevated BG at admission -- Hold metformin by mouth at home medication -- sliding scale insulin -- A1c is ordered 8.2 -- currently on 10 lantus BID+ 4 units TIDWM + low SSI Assessment #3 hypertension chronic presumed stable -- Patient has taken am medications -- We will hold Benicar till after the surgery, still not needing it. Assessment #4 possible sleep apnea, chronic present on admission -- We will watch for oxygen desaturation nighttime especially with pain meds on board -- Continue to monitor -- needing 1-2L via [place] CODE STATUS: Patient was unable to decide, which makes her full code Alternate decision-maker: Daughter High risk medication: Morphine IV Disposition: Patient is probably going to need SNF placement for recovery following her surgery, however she is not from the [place]. This may present with some issues with placement. We will consult social work. May have to train/educate the family on how to work with patient to facilitate rehabilitation long-term Pain Evaluation: Adequate Pain Control VTE Mechanical Devices: Intermittant Pneumatic CD Resuscitation Status: CPR: Attempt Resuscitation (patient was unable to answer the question) Time spent 25 min Sarai Garcia DO Nov 09, 2016 11:59
--- NOTE | 2016-11-09 13:22 | NUR ---
Evaluation completed. Please go to "Notes" then click on "Assessments and Notes" (bottom left corner of screen). Then select appropriate discipline tab on top of screen.
--- NOTE | 2016-11-09 14:44 | DRSVH ---
PROCEDURE: CT CHEST AND ABDOMEN WITH CONTRAST ([id number]) INDICATIONS: 66 year-old woman with suspected malignancy. TECHNIQUE: After the administration of intravenous contrast, 5 mm thick sections acquired from the lung apices t o the iliac crests. 5 mm coronal and sagittal reformats were performed, with additional 7 mm coronal MIP reformats through the lungs. For radiation dose reduction, the following was used: automated e xposure control, adjustment of mA and/or kV according to patient size. COMPARISON: [facility], CR, XR FEMUR 1VW LT, 11/08/2016, 9:16. [facility], C R, XR FEMUR 2VW LT, 11/08/2016, 16:03. FINDINGS: Image quality: Excellent. CHEST: Lungs and pleura: There is a 3 mm nodule in the right upper lobe (series 3 image 17). A few small no dules in the left lung, measuring 3-4 mm (series 3, image 25, 30 and 42). A small groundglass opaciti es noted in the right lower lobe.. No pleural effusions or pneumothorax. Central and peripheral air ways appear patent and normal in caliber. Mediastinum: Heart size is normal. No pericardial effusion. No mediastinal or hilar adenopathy by size criteria. Thoracic aorta and central pulmonary arteries are normal in size. Esophagus is chidi l in caliber. There is a small hiatal hernia. Chest wall: No axillary or supraclavicular adenopathy by size criteria. Thyroid gland is normal. ABDOMEN: Solid organs: There is a heterogeneous mass in the right kidney involving the superior pole measurin g 6.2 x 4.6 x 4.9 cm, highly suspicious for renal cell carcinoma. The renal vein and inferior vena ca va are patent. No enlarged perirenal lymph node. A 1 cm low-density nodule in the inferior pole of left kidney is likely a cyst. There is a 4 mm nonob structive stone the left kidney. No hydronephrosis. Liver and spleen are normal in size and enhancement. Gallbladder is normal. Biliary system is non d ilated. Pancreas enhances normally. No adrenal nodules. Peritoneum and bowel: Bowel loops demonstrate normal wall thickness and caliber. No free fluid or a ir. Nodes and vessels: No retroperitoneal or mesenteric adenopathy by size criteria. Aorta and inferior vena cava are normal in size. Bones: There is a 6 mm lucency in the L5 vertebral body. No vertebral body compression fractures. Miscellaneous: No ventral hernias. IMPRESSION: 1. A large right renal mass highly suspicious for renal cell carcinoma. 2. A small lucency in the L5 vertebral body, which could represent early metastasis. 3. A 4 mm nonobstructive left renal stone. 4. A 1 cm left renal cyst. 5. Several subcentimeter lung nodules bilaterally. Recommend short interval followup CT in 3 months Dictated by: Santo Clark M.D. on 11/09/2016 at 14:21 Approved by: Santo Clark M.D. on 11/09/2016 at 14:42
[2016-11-09] MEDS: CeFAZolin Inj 2 GM in Dextrose 5% 50 ML IV SCH (16:25)
--- NOTE | 2016-11-09 18:01 | NUR ---
Bowel Movement Patient had small BM on bedpan, encouraged to get up to BSC but preferred bed hugo d/t pain. Patient pre-medicated prior to positioning. Pain reported only with positioning. Patient in room with daughter, call light within reach, will continue to monitor.
[2016-11-10] VITALS (8 sets, daily range): BP systolic 107–123; BP diastolic 69–81; PULSE 84–94; RESP 16–18; O2SAT 94–97
[2016-11-10] MEDS: CeFAZolin Inj 2 GM in Dextrose 5% 50 ML IV SCH ×3 (00:43→18:18)
[2016-11-10] MEDS: Sodium Chloride LOK Flush 10 mL Syringe IV SCH ×3 (00:44→16:30)
[2016-11-10] MEDS: Insulin GLARgine 100 Unit/mL Syringe SUBQ SCH ×3 (00:44→21:31)
--- NOTE | 2016-11-10 06:13 | NUR ---
ACTIVITY: Resting in bed through the night, made no attempts to get oob tonight. C/o sore throat but denies any other pain, declined need for pain medication. Denies n/v. Selby put out 900 ml tiago urine. Flat affect, A and O, vss. On going care.
--- NOTE | 2016-11-10 07:59 | PCM.PNORTH ---
Subjective Date of Service: Nov 10, 2016 Visit Information: Reason for Visit Left Femur Fracture Surgery/Surgery Date IM GERARD LEFT FEMUR 11/07/16 Post-Op Day # 2 Date of Admission: Nov 07, 2016 at 13:35 Hospital Day # Subjective Patient states she is having pain everywhere and states it is more uncomfortable today that previously. She is also complaining of a sore throat. Postop General: No Complaints, No Shortness of Breath, No Chest Pain, Good Appetite, Normal Bowel Movement Pain Management: PO Objective Exam Objective Patient laying in bed Vital Signs and I/O Vital Sign - Last Date Time Temp Pulse Resp B/P Pulse Ox O2 Delivery O2 Flow Rate FiO2 11/10/16 05:53 36.9 84 16 107/69 94 Room Air 11/09/16 05:36 2.00 Intake and Output 11/09/16 11/09/16 11/10/16 Cumulative From/Thru 15:00 23:00 07:00 11/07/16 11:53 - 11/10/16 06:11 Intake Total 1420 ml 314 ml 6831 ml Output Total 2100 ml 900 ml 6920 ml Balance -680 ml -586 ml -89 ml Intake Oral 1356 ml 200 ml 3156 ml IV Total 64 ml 114 ml 3675 ml Output Urine Total 2100 ml 900 ml 6520 ml Estimated Blood Loss 400 ml # Bowel Movements 1 0 1 Lab & Micro Results Laboratory Tests Test 11/09/16 12:18 11/09/16 15:33 11/10/16 05:28 Hemoglobin 8.0g/dL (12.0-15.6) 8.8g/dL (12.0-15.6) 7.5g/dL (12.0-15.6) Hematocrit 24.0% (35.0-46.0) 25.4% (35.0-46.0) 22.8% (35.0-46.0) White Blood Count 8.7th/mm3 (3.8-10.1) Sodium Level 137mEq/L (134-144) Potassium Level 4.4mEq/L (3.5-5.2) Chloride Level 99mEq/L (97-108) Carbon Dioxide Level 24mmol/L (18-29) Blood Urea Nitrogen 14mg/dL (8-27) Creatinine 0.76mg/dL (0.57-1.00) Estimat Glomerular Filtration Rate 109mL/min (>59) Glucose Level 247mg/dL (60-99) Calcium Level 8.5mg/dL (8.5-10.1) Total Bilirubin 0.3mg/dL (0.0-1.2) Aspartate Amino Transf (AST/SGOT) 27U/L (0-50) Alanine Aminotransferase (ALT/SGPT) 9U/L (0-32) Alkaline Phosphatase 69U/L (25-165) Total Protein 5.7g/dL (6.4-8.4) Albumin 3.3g/dL (3.4-5.0) Result Diagram: 11/10/1652711/10/16527 General Appearance: Alert, Oriented X3, Cooperative, No Acute Distress Extremities: Distal Pulses Palpable, No Compartment Syndrom Noted, Tenderness/ Swelling Noted (throughout lateral thigh) Postop Sensory Motor: Distal Motor Intact, Movement in Toes, Distal Sensation Intact, NVI Distally Activity: Ambulate with PT (50% WB) Catheters: Urethral 2 Way Kellogg Assessment & Plan Impression POD#2 left hip long nail Problems: Plan Did not discuss patient's medical condition with her or daughter today. Awaiting medicine who will be by to see patient and family around 3pm this afternoon. Would prefer kellogg be d/c'd when patient can safely ambulate to/from commode. Weightbearin% weightbearing with a front wheeled walker DVT prophylaxis: Currently on Lovenox 40 mg subcutaneous daily Physical therapy for transfers, progressive ambulation, strengthening Wound care: Dressings changed today to island dressings. Please change/ reinforce as needed. Analgesia: Continue oral analgesia. Discharge plan: Discharge home vs SNF in 1-2 days. Patient is from [place] and will likely need SNF placement in order to rehabilitate well enough to return to her home. Resuscitation Status: CPR: Attempt Resuscitation (patient was unable to answer the question) Vannesa Wasserman PA-C Nov 10, 2016 07:59
[2016-11-10] MEDS: Senna-Docusate 8.6-50 mg Tablet PO SCH ×2 (08:30→22:02)
[2016-11-10] MEDS ORDERED: Insulin GLARgine 100 Unit/mL Syringe SUBQ SCH (08:30)
--- NOTE | 2016-11-10 08:59 | CONS ---
[address] [address] CONSULTATION REPORT PATIENT: CHERYL ROSEN : 1950 MR#: [id number] ADMIT: 11/07/2016 JOB ID: [id number] DATE OF SERVICE: 11/09/2016 HISTORY OF PRESENT ILLNESS: The patient is a 65-year-old woman from [place] with a history of hypertension and diabetes, possibly sleep apnea. While visiting family in [facility], she suffered a fall at about 11 a.m. on November 07, 2016 as she was trying to get up the stairs. She had severe pain and was brought to the emergency department at [facility], where films of the left hip showed a comminuted proximal left femoral shaft fracture. She was admitted for orthopedic management. Dr. Cachorro Lopez evaluated her and took her to ORIF of the left femur with a locked femoral harvey on November 08, 2016. Imaging did not show any suspicious soft tissue calcifications or masses, but there was concern for possible pathologic fracture. CT of the chest and abdomen on November 09, 2016 showed a large 6.2 x 4.6 x 4.9 cm mass in the right kidney, highly suspicious for renal cell carcinoma. The right renal vein and inferior vena cava were patent. There were no enlarged perirenal lymph nodes. A 1 cm low-density nodule in the inferior pole of the opposite (left) kidney was felt to represent a likely cyst. There was a 6 mm lucency in the L5 vertebral body, but no vertebral body compression fractures. Incidental note was made of a nonobstructive 4 mm stone in the left renal collecting system. At surgery, tissue was sent for pathology, but is not yet available. PAST MEDICAL HISTORY: 1. Hypertension. 2. Diabetes. 3. Possible sleep apnea. 4. Left hip fracture as above. 5. Coccygeal fracture. 6. Breast fibroid surgery. 7. Tonsillectomy. ALLERGIES: No known drug allergies. MEDICATIONS: 1. Insulin. 2. Cefazolin 2 g IV q.8 hours x6. 3. Senokot p.r.n. 4. Docusate p.r.n. 5. Hydrocodone/acetaminophen 5/325 one to two tabs q.4 hours p.r.n. 6. Oxycodone 5 mg p.o. q.4 hours p.r.n. 7. Ondansetron 4-8 mg IV q.4 hours. p.r.n. 8. Benadryl p.r.n. 9. Vistaril p.r.n. 10. Magnesium hydroxide p.r.n. 11. Dulcolax p.r.n. 12. MiraLAX p.r.n. 13. Fleet's enema p.r.n. FAMILY HISTORY: Mother is alive and healthy. Father when she was an infant with heart disease. There is an extensive history of kidney disease in the family. SOCIAL HISTORY AND HABITS: The patient is from [place]. She has a son in [facility] and a daughter who lives locally and works at [facility]. She is a retired medical records worker. She is a nonsmoker, nondrinker. REVIEW OF SYSTEMS: No headaches. No dizziness. No bleeding. No significant cough, no chest pain. No nausea or vomiting. She has had occasional constipation. She has postsurgical pain. Remaining review of systems is unremarkable. PHYSICAL EXAMINATION: This is a pleasant, slightly older [facility] woman who has some acute postoperative pain, but otherwise in no acute distress. Vitals: T 36.7, P 128, R 17, BP 116/72, O2 saturation 93% on room air. HEENT: Pupils slightly constricted, but reactive. Extraocular muscles intact. Sclerae anicteric. Conjunctivae pale. Mucous membranes slightly dry, no oral lesions. Chest clear throughout. Cardiac exam tachycardic, but regular with normal S1, S2. Abdomen: Soft, nontender, slightly decreased bowel tones. No palpable masses. Extremities postsurgical changes from left femoral fracture, no edema, 2+ distal pulses, no calf tenderness. LABORATORIES: WBC 8.4, hemoglobin 8.4, hematocrit 25.6%, platelets 249,000. Sodium 131, potassium 4.7. BUN 24, creatinine 0.81. Glucose 277. AST 21, ALT 15, alkaline phosphatase 87. PT 9.9, INR 0.93. ASSESSMENT AND PLAN: Right kidney mass with possible osseous metastases: The patient presented with a ground level fall and comminuted fracture of the left femur. Imaging was worrisome for possible pathologic disease in this area. Further evaluation with CT of the chest and abdomen found a 6.2 cm mass in the right kidney, highly suspicious for renal cell carcinoma. There was also a 6 mm lucency in the L5 vertebral body, but no vertebral body compression. There were several subcentimeter lung nodules bilaterally, nonspecific. At the time of left femur ORIF surgery with Dr. Lopez, tissue was sent to pathology. Await pathologic evaluation. Once the patient is able, consider nuclear bone scan for further evaluation. I will speak with the patient and family in more detail tomorrow once additional detail becomes available. Thank you very much for allowing us to participate in your patient's care. Cc: Dr. Sarai Garcia
[2016-11-10] MEDS: HYDROcodone-APAP 5-325 mg Tablet PO PRN ×2 (09:17→15:12)
[2016-11-10] MEDS: Insulin LISPRO 300 Unit/3 mL Inj SUBQ SCH ×4 (09:27→21:33)
[2016-11-10] MEDS ORDERED: Insulin LISPRO 300 Unit/3 mL Inj SUBQ SCH ×2 (11:30→17:00)
[2016-11-10] MEDS ORDERED: Insulin LISPRO 300 Unit/3 mL Inj SUBQ ONE (13:10)
--- NOTE | 2016-11-10 15:23 | PCM.PNMED ---
Subjective Date of Service Nov 10, 2016 Subjective Updated daughter Alivia on patient's new diagnosis of renal cell carcinoma over the phone this a.m. also discussed this with patient with the help of online cloth handler. Her questions were answered. Patient states her pain is well controlled, she has no questions or concerns. She had a bowel movement yesterday. Exam Vital Signs Vital Sign - Last Date Time Temp Pulse Resp B/P Pulse Ox O2 Delivery O2 Flow Rate FiO2 11/10/16 08:21 37.1 92 18 110/70 94 Nasal Cannula 1.00 Intake and Output 11/09/16 11/09/16 11/10/16 Cumulative From/Thru 15:00 23:00 07:00 11/07/16 11:53 - 11/10/16 06:11 Intake Total 1420 ml 314 ml 6831 ml Output Total 2100 ml 900 ml 6920 ml Balance -680 ml -586 ml -89 ml Intake Oral 1356 ml 200 ml 3156 ml IV Total 64 ml 114 ml 3675 ml Output Urine Total 2100 ml 900 ml 6520 ml Estimated Blood Loss 400 ml # Bowel Movements 1 0 1 Exam Gen. Patient is in no acute distress, is able to talk with the help of online cloth handler. Oxygen 1 L via NC HEENT: Normocephalic, atraumatic, large neck Heart: Regular rate and rhythm, no S3-S4 murmurs Lungs are clear to auscultation anteriorly Abdomen: Soft and obese, nontender to palpation Extremities: negative for swelling Vascular: Palpable pedal pulses Neurological: No focal deficits Psychiatric: No anxiety or agitation Lab and Diagnostics Result Diagram: 11/10/16 0528 11/10/16 0528 Assessment & Plan This is a 65-year-old pleasant female from [place] who was visiting her daughter in the when she suffered a left femur fracture. She is being admitted with orthopedic consult with Dr. Lopez. She is expected to undergo an operation early tomorrow a.m. Assessment # left hip fracture, present on admission acute -- X-ray showed comminuted, proximal, femoral shaft fracture -- Pain control with morphine 2-4 mg every 3 hours as needed for severe pain -- Hydrocodone acetaminophen every 4 hours for moderate pain -- Consulted orthopedics, a plan to do surgery 11/08 -- Selby catheter to gravity -- Social work referral is placed -- Discussed x-ray of the left femur, Dr. Lopez is made aware of the recommendation to do 2 view knee x-ray. Femoral x-ray of the right and left showed no concern for acute fractures other than the one that was noted initially in the proximal femoral shaft -- CT chest W contrast is ordered per Dr. Lopez she was concerned that her femur fracture was pathological, and Dr. Lopez is concerned about malignancy. Contacted interventional radiology Dr. Diane who feels that no biopsy is required for this type of cancer imaging alone should suffice. Contacted Dr. Colón who kindly agreed to consult on this case. We appreciate his recommendations. "Right kidney mass with possible osseous metastases: Imaging showed a 6.2 cm mass in the right kidney, highly suspicious for renal cell carcinoma. In addition to her comminuted fracture of the left femur, there was also a 6 mm lucency in the L5 vertebral body. Proceed with nuclear bone scan to evaluate further for osseous metastases. In addition, she had several subcentimeter lung nodules bilaterally, which will need to be monitored. Await final pathology from her open reduction internal fixation procedure. If she has tumor limited to her right kidney, she would be a potential candidate for a right nephrectomy, which could be curative. Even for patients with advanced disease, nephrectomy can lead to prolonged survival, and such patients can be treated postsurgically with oral sunitinib. The patient is from [place], and it is unclear if she would wish to receive additional treatment locally, or after she is well enough to travel to [place]." -- Bone biopsy done by Dr. Lopez however she feels that it may be an adequate specimen, b/c it may not have been taken from in the malignant area Assessment # acute blood loss anemia due to blood loss inherent to orthopedic surgery -- H&H trending down, 7.5 today. -- One unit PRBC cross matched, transfusion is ordered. -- f/u H&H at 3AM Assessment # chronic diabetes uncontrolled -- Pt had elevated BG at admission -- Hold metformin by mouth at home medication -- sliding scale insulin -- A1c is ordered 8.2 -- currently on 17 units lantus BID+ 12 units TIDWM + low SSI -- Daily assessment of how much coverage she needed in last 24 hrs and adjusting dose to achieve optimal contorl. Assessment # hypertension chronic presumed stable -- Patient has taken am medications -- We will hold Benicar till after the surgery, still not needing it. Assessment # possible sleep apnea, chronic present on admission -- We will watch for oxygen desaturation nighttime especially with pain meds on board -- Continue to monitor -- needing 1-2L via NC CODE STATUS: Patient was unable to decide, which makes her full code Alternate decision-maker: Daughter High risk medication: Morphine IV Disposition: Patient is probably going to need SNF placement for recovery following her surgery, however she is not from the [place]. This may present with some issues with placement. We will consult social work. May have to train/educate the family on how to work with patient to facilitate rehabilitation long-term. We also trying to do patient's family a plan on how to address her renal cell carcinoma with the expectation that she will not actually be treated for this in this country but can follow as soon as she is able to return to her country. Patient was never on insulin before but has BG uncontrolled. Pain Evaluation: Adequate Pain Control VTE Mechanical Devices: Intermittant Pneumatic CD, Anti-Embolic stockings Resuscitation Status: CPR: Attempt Resuscitation (patient was unable to answer the question) Time spent 30 minutes Sarai Garcia DO Nov 10, 2016 09:12 Sarai Garcia DO Nov 10, 2016 09:12
--- NOTE | 2016-11-10 16:01 | PROG NOTE ---
[address] [address] PROGRESS NOTE PATIENT: CHERYL ROSEN : 1950 MR#: [id number] ADMIT: 11/07/2016 JOB ID: [id number] DATE: 11/10/2016 SUBJECTIVE: This patient is a 65-year-old, [facility] woman with a right kidney mass with possible osseous metastases. She presented with a ground level fall and comminuted fracture of the left femur, which has been treated surgically with ORIF by Dr. Cachorro Lopez, two days ago. Pathology is not available. She has some postoperative pain, but is otherwise doing well. No other areas of bone pain. She denies any blood per urine. Visit today was performed with an spanish medical interpreter, with family present (daughter). OBJECTIVE: Vitals: T 37.1, P 98, R 16, BP 123/81. HEENT: Conjunctivae pale. Mucous membranes moist. Chest is clear. Cardiac exam: Regular rate and rhythm with normal S1, S2. Abdomen: Soft, nontender. No palpable masses. Extremities: Post surgical changes, trace pedal edema. 2+ distal pulses. LABORATORY DATA: WBC 8.7, hemoglobin 7.5, hematocrit 22.8%, BUN 14, creatinine 0.76. Glucose 247. ASSESSMENT AND PLAN: Right kidney mass with possible osseous metastases: Imaging showed a 6.2 cm mass in the right kidney, highly suspicious for renal cell carcinoma. In addition to her comminuted fracture of the left femur, there was also a 6 mm lucency in the L5 vertebral body. Proceed with nuclear bone scan to evaluate further for osseous metastases. In addition, she had several subcentimeter lung nodules bilaterally, which will need to be monitored. Await final pathology from her open reduction internal fixation procedure. If she has tumor limited to her right kidney, she would be a potential candidate for a right nephrectomy, which could be curative. Even for patients with advanced disease, nephrectomy can lead to prolonged survival, and such patients can be treated postsurgically with oral sunitinib. The patient is from [place], and it is unclear if she would wish to receive additional treatment locally, or after she is well enough to travel to [place]. Cc: Sarai Garcia DO
--- NOTE | 2016-11-10 20:07 | NUR ---
Pain/mobility/BS Pain rx given x 2. 1 time in prep for PT. Once patient not moving pt able to fall asleep easily. Pt not able to get OOB with therapy, they suggest 2 max assist if attempt to use BSC. 2 person assist to pull up in bed or for turning. BS elevated, MD aware and nutritional coverage adjusted.
[2016-11-11] VITALS (9 sets, daily range): BP systolic 105–128; BP diastolic 65–78; PULSE 86–95; RESP 14–20; O2SAT 97–98
[2016-11-11] MEDS: Sodium Chloride LOK Flush 10 mL Syringe IV SCH ×3 (01:00→16:30)
[2016-11-11] MEDS: 0.9% Sodium Chloride 250 ML IV SCH ×2 (01:00→22:00)
[2016-11-11] MEDS: HYDROcodone-APAP 5-325 mg Tablet PO PRN ×2 (03:15→14:23)
--- NOTE | 2016-11-11 03:18 | NUR ---
Blood Transfusion A new order for 1 unit of PRBCs had been scheduled for this shift. Ordering doctor was not available to discuss and sign consent with patient, so night hospitalist was contacted and came down as soon as they were available. In addition lab had to redraw patients antibodies and blood type; blood was not available from the blood bank until 0040. Blood was picked up from the blood bank at 0107 and was started at 0125. Double check with RN was completed. Vitals prior to administration were;T 37.1 HR 93 Bp 128/76 and RR 14. After 15 minutes vitals were retaken; T 37.2 HR 95 BP 120/77 and RR 14. Temp was further assessed after educating the patient on deep breathing, coughing and using the IS, and was 36.8. Will continue to closely monitor and continue Q1 hour checks.
[2016-11-11] MEDS ORDERED: Insulin LISPRO 300 Unit/3 mL Inj SUBQ SCH (07:30)
[2016-11-11] MEDS ORDERED: Insulin GLARgine 100 Unit/mL Syringe SUBQ SCH (08:30)
[2016-11-11] MEDS: Insulin LISPRO 300 Unit/3 mL Inj SUBQ SCH ×7 (08:44→20:48)
[2016-11-11] MEDS: Senna-Docusate 8.6-50 mg Tablet PO SCH ×2 (08:45→20:30)
[2016-11-11] MEDS: Insulin GLARgine 100 Unit/mL Syringe SUBQ SCH ×2 (08:45→20:58)
--- NOTE | 2016-11-11 09:20 | PCM.PNORTH ---
Subjective Date of Service: Nov 11, 2016 Visit Information: Reason for Visit Left Femur Fracture Surgery/Surgery Date IM GERARD LEFT FEMUR 11/07/16 Post-Op Day # 4 Date of Admission: Nov 07, 2016 at 13:35 Hospital Day # Subjective Patient complains of pain all over Postop General: No Shortness of Breath, No Chest Pain, Good Appetite, Normal Bowel Movement Pain Management: PO Objective Exam Objective Patient is seen sitting up in bed Vital Signs and I/O Vital Sign - Last Date Time Temp Pulse Resp B/P Pulse Ox O2 Delivery O2 Flow Rate FiO2 11/11/16 04:52 37.1 87 14 128/75 11/11/16 00:15 98 Nasal Cannula 1.00 Intake and Output 11/10/16 11/10/16 11/11/16 Cumulative From/Thru 15:00 23:00 07:00 11/07/16 11:53 - 11/11/16 05:33 Intake Total 1659 ml 925 ml 9415 ml Output Total 900 ml 900 ml 8720 ml Balance 759 ml 25 ml 695 ml Intake Oral 876 ml 200 ml 4232 ml IV Total 783 ml 225 ml 4683 ml Packed Cells 500 ml 500 ml Output Urine Total 900 ml 900 ml 8320 ml Estimated Blood Loss 400 ml # Bowel Movements 0 1 Lab & Micro Results Laboratory Tests Test 11/11/16 05:55 Hemoglobin 8.4g/dL (12.0-15.6) Hematocrit 25.4% (35.0-46.0) Sodium Level 138mEq/L (134-144) Potassium Level 3.9mEq/L (3.5-5.2) Chloride Level 100mEq/L (97-108) Carbon Dioxide Level 23mmol/L (18-29) Blood Urea Nitrogen 15mg/dL (8-27) Creatinine 0.65mg/dL (0.57-1.00) Estimat Glomerular Filtration Rate 130mL/min (>59) Glucose Level 204mg/dL (60-99) Calcium Level 8.4mg/dL (8.5-10.1) Result Diagram: 11/11/16 0555 11/11/16 0555 General Appearance: Alert, Oriented X3, Cooperative, No Acute Distress Extremities: Distal Pulses Palpable, No Compartment Syndrom Noted, Thigh & Calf Soft/Nontender Postop Sensory Motor: Distal Motor Intact, Distal Sensation Intact, NVI Distally SURGICAL WOUND : Wound Location/Description Left lower extremity: The 2 most proximal dressings have serous drainage present. The distal dressing is clean, dry and intact Activity: Ambulate with PT (50% WB) Catheters: Urethral 2 Way Selby Assessment & Plan Impression POD #4 Left hip IM nailing Problems: Plan Weightbearin% weightbearing with a front wheeled walker DVT prophylaxis: Lovenox 40 mg subcutaneous daily x 3 weeks post op Physical therapy for transfers, progressive ambulation, strengthening Wound care: Nursing please change dressings today with island dressing at 2 procimal wounds, and 2x2 gauze and Tegaderm at distal wound. Analgesia: Continue oral analgesia. Discharge plan: Discharge home vs SNF in 1-2 days. Patient is from [place] and will likely need SNF placement in order to rehabilitate well enough to return to her home. Follow up at [facility] in 2 weeks with CINTIA for staple removal, and at 6 weeks [address] op [address] Dr[address] Lopez with xrays if the patient has not returned to [place]. Ortho service will sign off for now. Please call us if any left hip/wound issues. Pain Management: [place] Resuscitation Status: CPR: Attempt Resuscitation (patient was unable to answer the question) Gayathri Montague PA-C Nov 11, 2016 09:20
--- NOTE | 2016-11-11 11:38 | NUR ---
Social Work-Continued D/C Planning/Multidisciplinary Rounds Data: EMR reviewed. Pt is on day 4 of hospitalization. Pt discussed in multidisciplinary rounds, PT continues to recommend SNF. Pt will require rehab before she is able to return to [place]. T/C to pt's daughter regarding discharge planning. Discussed private pay SNF and associated costs. Pt's daughter is worried about finances but is agreeable to pvt pay SNF as she realizes that her mother needs the care and she knows that SNF is cheaper than hospitalization. LIBERTAD spoke with [facility] regarding [employer] coverage--pt is not eligible as she is not a [facility] resident. Pt's daughter has [facility] application for hospital. SW scheduled meeting with pt's daughter and pt at 1320 today to discuss SNF choice and pricing. SW to bring private pay costs to meeting. LIBERTAD will continue to follow for discharge needs. Assessment: Pt who medically requires SNF at d/c Plan: Scheduled meeting with pt's daughter and pt at 1320 today to discuss SNF choice and pricing. SW to bring private pay costs to meeting. LIBERTAD will continue to follow. LOLA Estrada Addendum: 11/11/16 at 1423 by STEVE HERNANDEZ Meeting with pt's daughter regarding discharge plan. Private pay prices provided to pt's daughter. Daughter is agreeable to referrals being made to [facility], [facility] to explore cost of therapies. [facility] asked to make referrals. Social Work will continue to follow. LOLA Estrada
--- NOTE | 2016-11-11 14:36 | DRSVH ---
PROCEDURE: TX WHOLE BODY BONE SCAN (90028) RADIOPHARMACEUTICAL: 26.7 mCi Tc-99m MDP IV. INDICATIONS: RENAL CANCER. SUSPECT BONE METASTASES. TECHNIQUE: Delayed whole-body scintigrams were obtained approximately 3-4 hours after intravenous injection of r adiotracer. Anterior and posterior views were acquired from vertex to feet. Additional left and rig ht oblique views of the skull and cervical spine were obtained. COMPARISON: [facility], CR, XR HIP 2VW LT, 11/07/2016, 12:06. [facility], CR , XR FEMUR 2VW RT, 11/07/2016, 13:58. [facility], CR, XR FEMUR 1VW LT, 11/08/2016, 9:16. [facility], CR, XR FEMUR 2VW LT, 11/08/2016, 16:03. [facility], CT, CT CHEST ABD W CON, 11/09/2016, 13:34. FINDINGS: There is increased activity in sacrum involving the sacral body. No definitive abnormal upt francisco in L5. No lesions are identified in skull, sternum, scapulae and ribs. There is increased uptake in the prox imal left femur. The patient had recent open reduction internal fixation of comminuted left femoral f racture. There are foci of low grade increased uptake in cervical, thoracic and lumbar spine with dis tribution indistinguishable from degenerative disc and facet disease. There is increased periarticula r activity involving shoulders bilaterally, wrists bilaterally, hips bilaterally, knees bilaterally, ankles and feet bilaterally, compatible with degenerative/arthritic changes. There are 2 kidneys, nor mal in size and position. There is normal soft tissue uptake. IMPRESSION: 1. No definitive increased tracer uptake in L5 where a lucency was seen in L5 on CT. Bone scan has de creased sensitivity to detect aggressive lytic bone lesions such as renal cell metastasis and multipl e myeloma. An early metastasis could be missed on this bone scan. For this reason, one might want to consider MRI with and without contrast for further evaluation. 2. Increased uptake in sacrum suggesting metastases. Recommend radiographic correlation. 3. Increased uptake in the proximal left femoral shaft. The patient has recent open reduction and int ernal fixation of comminuted femoral shaft fracture. Dictated by: Santo Clark M.D. on 11/11/2016 at 14:24 Approved by: Santo Clark M.D. on 11/11/2016 at 14:34
--- NOTE | 2016-11-11 15:21 | PCM.PNMED ---
Subjective Date of Service Nov 11, 2016 Subjective pt received 1u pRBC overnight. Exam Vital Signs Vital Sign - Last Date Time Temp Pulse Resp B/P Pulse Ox O2 Delivery O2 Flow Rate FiO2 11/11/16 14:23 37.2 91 20 123/76 98 Nasal Cannula 1.00 Intake and Output 11/10/16 11/10/16 11/11/16 Cumulative From/Thru 15:00 23:00 07:00 11/07/16 11:53 - 11/11/16 05:33 Intake Total 1659 ml 925 ml 9415 ml Output Total 900 ml 900 ml 8720 ml Balance 759 ml 25 ml 695 ml Intake Oral 876 ml 200 ml 4232 ml IV Total 783 ml 225 ml 4683 ml Packed Cells 500 ml 500 ml Output Urine Total 900 ml 900 ml 8320 ml Estimated Blood Loss 400 ml # Bowel Movements 0 1 Exam Gen. Patient is in no acute distress, is able to talk with the help of online mine administrator supervisor. HEENT: Normocephalic, atraumatic, large neck Heart: Regular rate and rhythm, no S3-S4 murmurs Lungs are clear to auscultation anteriorly Abdomen: Soft and obese, nontender to palpation Extremities: negative for swelling Vascular: Palpable pedal pulses Neurological: No focal deficits Psychiatric: No anxiety or agitation IVs and Medications Medications Reviewed: Medications were reviewed in detail Lab and Diagnostics Result Diagram: 11/11/16 0555 11/11/16 0555 X-Rays, CTs and MRIs 11/11/16- Bone Scan- No definitive increased tracer uptake in L5 where a lucency was seen in L5 on CT. Increased uptake in sacrum suggesting metastases 1. No definitive increased tracer uptake in L5 where a lucency was seen in L5 on CT. Bone scan has decreased sensitivity to detect aggressive lytic bone lesions such as renal cell metastasis and multiple myeloma. An early metastasis could be missed on this bone scan. For this reason, one might want to consider MRI with and without contrast for further evaluation. 2. Increased uptake in sacrum suggesting metastases. Recommend radiographic correlation. 3. Increased uptake in the proximal left femoral shaft. The patient has recent open reduction and internal fixation of comminuted femoral shaft fracture. Assessment & Plan This is a 65-year-old pleasant female from [place] who was visiting her daughter in the when she suffered a left femur fracture. Admitted with orthopedic consult with Dr. Lopez s/p IM GERARD Left Femur on 11/07/16. Pt had Bone Scan on showing Increased uptake in sacrum suggesting metastases. Left hip fracture s/p IM GERARD LEFT FEMUR 11/07/16 , present on admission, active . - f/u Ortho final recs on 11/11 Weightbearin% weightbearing with a front wheeled walker DVT prophylaxis: Lovenox 40 mg subcutaneous daily x 3 weeks post op Physical therapy for transfers, progressive ambulation, strengthening Analgesia: Continue oral analgesia. Discharge plan: Discharge home vs SNF in 1-2 days. Patient is from [place] and will likely need SNF placement in order to rehabilitate well enough to return to her home. Follow up at [facility] in 2 weeks with PA for staple removal, and at 6 weeks post op with Dr. Lopez with xrays if the patient has not returned to [place]. Right Renal mass with possible osseous metastases- poa, active- CT showed 6.2 cm mass in the right kidney. Ortho, Dr. Lopez concerned that her femur fracture was pathological due to malignancy. Bone biopsy done by Dr. Lopez however she feels that it may not be an adequate specimen, b/c it may not have been taken from in the malignant area Dr. Colón following, rec Bone Scan, follow up path from biopsy. 11/11/16- Bone Scan- No definitive increased tracer uptake in L5 where a lucency was seen in L5 on CT. Increased uptake in sacrum suggesting metastases Acute blood loss anemia due to blood loss inherent to orthopedic surgery- poa, active. s/p 1u RBC. - Hb has been stable. chronic diabetes uncontrolled -- Pt had elevated BG at admission -- Hold metformin by mouth at home medication -- A1c is ordered 8.2 -- currently on 20 units lantus BID+ 12 units TIDWM + low SSI -- Daily assessment of how much coverage she needed in last 24 hrs and adjusting dose to achieve optimal control. hypertension chronic presumed stable -- Patient has taken am medications -- We will hold Benicar until BP improves. possible sleep apnea, chronic present on admission -- We will watch for oxygen desaturation nighttime especially with pain meds on board -- Continue to monitor -- needing 1-2L via [place] CODE STATUS: Patient was unable to decide, which makes her full code Alternate decision-maker: Daughter High risk medication: Morphine IV Disposition: Patient is probably going to need SNF placement for recovery following her surgery, however she is not from the [place]. This may present with some issues with placement. May have to train/educate the family on how to work with patient to facilitate rehabilitation long-term. We also trying to do patient's family a plan on how to address her renal cell carcinoma with the expectation that she will not actually be treated for this in this country but can follow as soon as she is able to return to her country. Patient was never on insulin before but has BG uncontrolled. Pain Evaluation: Adequate Pain Control VTE Prophylaxis: Sub-Q Enoxaparin VTE Mechanical Devices: Intermittant Pneumatic CD Resuscitation Status: CPR: Attempt Resuscitation (patient was unable to answer the question) Seth Holder MD Nov 11, 2016 15:21
--- NOTE | 2016-11-11 16:04 | NUR ---
SENIOR CARE TRANSFER : Gave access and faxed facesheet to [facility] and [facility] per GROCERY SACKER and MD orders. This will be private pay and daughter will need to be contacted for that coordination [phone](Alivia)
--- NOTE | 2016-11-11 19:18 | NUR ---
Care Preference/Pain Pt does not want a male caregiver for personal care. Passed on to charge nurse and will try to keep only female staff as caregivers. Pt had some c/o pain in back, repositioned patient and gave norco w/ good relief.
[2016-11-12] VITALS (7 sets, daily range): BP systolic 116–134; BP diastolic 70–78; PULSE 75–101; RESP 12–16; O2SAT 90–100
[2016-11-12] MEDS: Sodium Chloride LOK Flush 10 mL Syringe IV SCH ×3 (00:40→16:30)
--- NOTE | 2016-11-12 01:06 | NUR ---
Mobility Patient A&OX3 and pleasant this evening. Has had no complaints of pain this shift except for when she is repositioned. Encouraging patient to move more in bed, and have been assisting with frequent turning and repositioning. city carrier used to explain to patient that turning is important to maintain skin integrity of her back side. Patient states she understands and is cooperative. Will continue to monitor and continue Q1 hour checks.
[2016-11-12] MEDS: HYDROcodone-APAP 5-325 mg Tablet PO PRN ×3 (04:29→19:12)
[2016-11-12 06:06] LABS: BASOPHILS % (AUTO) 0.2 % (0-3); EOSINOPHILS % (AUTO) 4.9 % (0-5); Mean Corpuscular Hemoglobin 30.6 pg (27.0-35.0); Mean Corpuscular Volume 92.9 fL (81-100); NEUTROPHILS % (AUTO) 72.3 % (40-74); Platelet Count 288 bil/L (150-400)
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
[2016-11-12] MEDS: Insulin LISPRO 300 Unit/3 mL Inj SUBQ SCH ×7 (08:16→21:10)
[2016-11-12] MEDS: Senna-Docusate 8.6-50 mg Tablet PO SCH ×2 (08:30→20:30)
--- NOTE | 2016-11-12 09:09 | PROG NOTE ---
[address] [address] PROGRESS NOTE PATIENT: CHERYL ROSEN : 1950 MR#: [id number] ADMIT: 11/07/2016 JOB ID: [id number] DATE: 11/12/2016 SUBJECTIVE: The patient is a 65-year-old woman from [place]. She sustained a left femoral shaft fracture after a ground level fall on November 07, 2016. At surgery (ORIF of the left femur) on November 08, [address] Lopez, there was question of possible pathologic fracture. Imaging of the chest and abdomen showed a 6.2 cm mass in the right kidney, consistent with renal cell carcinoma. She has been undergoing rehab for her orthopedic procedure, and additional evaluation of her cancer. Nuclear bone scan on November 11, 2016 did not show any abnormality in the L5 region where there was a small [address] scan. There was increased uptake in the sacrum, suggestive of metastatic disease. Otherwise there were only degenerative changes. There was uptake in the proximal left femoral shaft associated with her recent fracture and surgery. She is in good spirits this morning. No significant pain while resting in bed. We had family members and an carpenter wooden tank erecting to discuss her ongoing care. OBJECTIVE: Vitals: T 37.0, P 86, R 12, BP 125/77, O2 saturation 97% on 1 L oxygen by nasal cannula HEENT: Conjunctivae slightly pale. Mucous membranes moist. No oral lesions. Chest distant, but clear. Cardiac exam regular rate and rhythm with normal S1, S2. Abdomen soft, nontender, no palpable masses or organomegaly. Extremities postsurgical changes from recent ORIF of the left femur, no edema, 2+ distal pulses. LABORATORIES: WBC 8.0, hemoglobin 8.2, hematocrit 24.9%, MCV 93, platelets 288,000. Sodium 138, potassium 4.3, BUN 14, creatinine 0.64. Glucose 158. 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 She sustained a fracture of the left femur after a fall. Await pathology, but this could represent either a fracture due to trauma with or without pathologic involvement. Bone scan imaging shows additional disease in the sacrum, consistent with metastatic disease. She is recovering from recent orthopedic surgery. As soon as she is able, recommend arrangements be completed for transfer to [place], where she can receive the remainder of her care. It would be beneficial to obtain MRI imaging of the abdomen and pelvis to better assess bony involvement in the pelvis and her right renal mass. She is a potential candidate for right nephrectomy, and possibly for oral sunitinib once the diagnosis of metastatic disease is confirmed. Again, the patient would like to return to [place], and I believe that the remainder of her oncologic care should be pursued should be pursued near her home. Thank you for allowing us to participate in your patient's care. ADDENDUM: Pathology from bone fragments were negative for malignancy, but could have missed metastases. Recommend further evaluation and treatment in [place] as she plans to return home in the near future. HARISH
[2016-11-12] MEDS: Insulin GLARgine 100 Unit/mL Syringe SUBQ SCH ×2 (09:25→21:15)
--- NOTE | 2016-11-12 12:37 | NUR ---
Social Work- Update Call placed to pt's daughter regarding SNF choice. Both [facility] and [facility] accepted pt private pay. Left message requesting return call. LOLA Estrada
--- NOTE | 2016-11-12 13:59 | NUR ---
Social Work-Readiness for Discharge/Multidisciplinary Rounds Data: EMR reviewed. Pt is on day 5 of hospitalization. Pt discussed in multidisciplinary rounds, PT recommending SNF. Pt will require rehab before she is able to return to [place]. Anticipated timeline is approximately two weeks before pt is able to return to [place] pending follow up with Ortho and progress with PT. Pt is medically stable for discharge at this time. Spoke with Melany, steven at [facility], who is agreeable to accept pt at the rate of $295 per day plus the cost of therapies. No 30 day advance payment required. Spoke with Titus at [facility] who is agreeable to accept pt at the daily rate of $270 plus the cost of therapies. 30 day payment upfront is required. Spoke with pt's daughter and pt at bedside regarding accepting facilities and reviewed rates again. Pt's daughter reports that she has been asking family for money but she does not have the money to pay the facilities right now. Pt's daughter is agreeable that pt needs SNF and knows that she is medically stable for discharge. SW again provided daughter with the rates in addition to the contact information for both facilities. UR RN notified of situation as well. Daughter is aware that she is also going to be receiving a bill from this admission. Pt's daughter is very stressed about the situation, appropriately. SW will continue to follow. Assessment: Pt who medically requires SNF at d/c. Plan: Pt's daughter has not coordinated the funds for SNF transfer at this time. She has been asking family for money but she does not have the money to pay the facilities right now. Daughter is aware that pt is medically ready for discharge. Pt has two accepting facilities, [facility] and [facility]. Paperwork in chart. PASRR in folder. SW awaiting pt's daughter to coordinate and pay funds for facilities. SW will continue to follow LOLA Estrada
--- NOTE | 2016-11-12 15:27 | NUR ---
Pain Pt reports little or no pain during this shift. Pt receiving good pain relief from 2 [place] tabs and occasional repositioning with adjustment of pillows. Pt cooperative with care. Using interpretor services to communicate with pt.
--- NOTE | 2016-11-12 16:53 | PATH ---
SURGICAL PATHOLOGY Attending Physician:Jensen Littlejohn CASE STATUS: Signed Out PATIENT NAME: CHERYL ROSEN PID: [id number] : 1950 DATE COLLECTED:11/08/2016 00:00 SPECIMEN: Bone, Fragments (other than pathologic fracture) CLINICAL HISTORY: LEFT MIDSHAFT FRACTURE, LEFT MIDSHAFT FEMUR FRACTURE 1). LEFT MIDSHAFT FRACTURE FINAL DIAGNOSIS: Left Mid Shaft Fracture, Biopsy: - Fragments of devitalized and reactive bone. - No evidence of malignancy. - Additional deeper levels examined. ICD10: S72.352A GROSS DESCRIPTION: The specimen is received in one formalin filled container labeled with the patient's name, sublabeled "left mid shaft fracture" and consists of 2 fragments of red-felix soft supple bone which aggregate to 0.3 x 0.3 x 0.2 CM. The specimen is entirely submitted in one cassette. The specimen will be placed in decal for softening. 11/10/2016[place] ICD-9 CODES: CPT CODES: 1: 37205 Electronically Signed Out Cihki Gooden MD [facility] [address], [place] [address] Technical component performed at [facility], [address] [place] [address] Ave, [address], [place], [address]
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
[2016-11-13] VITALS (7 sets, daily range): BP systolic 110–131; BP diastolic 66–83; PULSE 73–95; RESP 16–18; O2SAT 88–98
[2016-11-13] MEDS: Sodium Chloride LOK Flush 10 mL Syringe IV SCH ×3 (01:06→17:29)
[2016-11-13] MEDS: Insulin LISPRO 300 Unit/3 mL Inj SUBQ SCH ×7 (08:18→22:00)
[2016-11-13] MEDS: Senna-Docusate 8.6-50 mg Tablet PO SCH ×2 (08:30→19:54)
[2016-11-13] MEDS: HYDROcodone-APAP 5-325 mg Tablet PO PRN ×3 (08:51→19:54)
[2016-11-13] MEDS: Insulin GLARgine 100 Unit/mL Syringe SUBQ SCH ×2 (08:52→22:00)
--- NOTE | 2016-11-13 17:12 | NUR ---
Social Work: Readiness for Discharge/Multidisciplinary Rounds D: EMR reviewed. Pt is on day 6 of hospitalization. Pt discussed in multidisciplinary rounds, PT recommending SNF. Pt will require rehab before she is able to return to [place]. Anticipated timeline is approximately two weeks before pt is able to return to [place] pending follow up with Ortho and progress with PT. Pt is medically stable for discharge at this time. LIBERTAD met with pt and in-person employment officer (Marleny) at bedside to discuss private pay rates discussed with SW on 11/12. SW explained that pt is medically stable for discharge and discussed bill at [facility] versus bill at SNF. Pt stated she was overwhelmed and requested SW call her daughter Alivia. SW and UR discussed pt's readiness for discharge. SW explained to pt that she will receive bill for days pt remains in hospital without medical necessity. Pt became upset and requested that SW speak with her daughter. SW agreed to call pt's daughter. T/C to Alivia and voicemail requesting return call. On 11/12. LIBERTAD spoke with steven Mosley at [facility], who is agreeable to accept pt at the rate of $295 per day plus the cost of therapies. No 30 day advance payment required. LIBERTAD also spoke with Titus at [facility] who is agreeable to accept pt at the daily rate of $270 plus the cost of therapies. 30 day payment upfront is required. A: Pt for whom a SNF is medically necessary. P: Pt's daughter has not coordinated the funds for SNF transfer at this time. She has been asking family for money but she does not have the money to pay the facilities right now. Daughter is aware that pt is medically ready for discharge. Pt has two accepting facilities, [facility] and [facility]. Paperwork in chart. PASRR in folder. SW awaiting pt's daughter to coordinate and pay funds for facilities. SW called daughter and left voicemail requesting return call. SW explained that pt is medically stable for discharge and discharge will need to happen tomorrow. Pt became overwhelmed and requested SW only speak with her daughter. SW to await T/C from pt's daughter or place T/C in the morning tomorrow regarding readiness for discharge. SW will continue to follow LOLA Alexander
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
--- NOTE | 2016-11-13 18:09 | PCM.PNMED ---
Subjective Date of Service Nov 13, 2016 Subjective Pt became diphoretic and nauseous during PT session today. Exam Vital Signs Vital Sign - Last Date Time Temp Pulse Resp B/P Pulse Ox O2 Delivery O2 Flow Rate FiO2 11/13/16 14:53 36.3 73 17 113/72 95 Room Air 11/12/16 12:04 1.00 Intake and Output 11/12/16 11/12/16 11/13/16 Cumulative From/Thru 15:00 23:00 07:00 11/07/16 11:53 - 11/13/16 06:17 Intake Total 500 ml 1072 ml 400 ml 07441 ml Output Total 1100 ml 1750 ml 950 ml 09530 ml Balance -600 ml -678 ml -550 ml -5125 ml Intake Oral 500 ml 1072 ml 400 ml 7912 ml IV Total 4683 ml Packed Cells 500 ml Output Urine Total 1100 ml 1750 ml 950 ml 84601 ml Estimated Blood Loss 400 ml # Bowel Movements 1 0 3 Exam Gen. South African speaking. Patient is in no acute distress, Lying in bed. HEENT: Normocephalic, atraumatic, large neck Heart: Regular rate and rhythm, no S3-S4 murmurs Lungs are clear to auscultation anteriorly Abdomen: Soft and obese, nontender to palpation Extremities: No LE Edema, Left Surgical Site- c/d/i. Minimal tenderness with palpation. Vascular: Palpable pedal pulses Neurological: No focal deficits Psychiatric: No anxiety or agitation IVs and Medications Medications Reviewed: Medications were reviewed in detail Lab and Diagnostics Result Diagram: 11/12/16 0540 11/12/16 0540 X-Rays, CTs and MRIs 11/11/16- Bone Scan- No definitive increased tracer uptake in L5 where a lucency was seen in L5 on CT. Increased uptake in sacrum suggesting metastases 1. No definitive increased tracer uptake in L5 where a lucency was seen in L5 on CT. Bone scan has decreased sensitivity to detect aggressive lytic bone lesions such as renal cell metastasis and multiple myeloma. An early metastasis could be missed on this bone scan. For this reason, one might want to consider MRI with and without contrast for further evaluation. 2. Increased uptake in sacrum suggesting metastases. Recommend radiographic correlation. 3. Increased uptake in the proximal left femoral shaft. The patient has recent open reduction and internal fixation of comminuted femoral shaft fracture. Assessment & Plan This is a 65-year-old pleasant female from [place] who was visiting her daughter in the [place] when she suffered a left femur fracture. Admitted with orthopedic consult with Dr. Lopez s/p IM GERARD Left Femur on 11/07/16. Pt had Bone Scan on showing Increased uptake in sacrum suggesting metastases. Left hip fracture s/p IM GERARD LEFT FEMUR 11/07/16 , present on admission, active . - f/u Ortho final recs on 11/11 Weightbearin% weightbearing with a front wheeled walker DVT prophylaxis: Lovenox 40 mg subcutaneous daily x 3 weeks post op Physical therapy for transfers, progressive ambulation, strengthening. Follow up at [facility] in 2 weeks with PA for staple removal, and at 6 weeks [address] op [address] Dr. Lopez with xrays if the patient has not returned to [place]. Right Renal mass with possible osseous metastases- poa, active- CT showed 6.2 cm mass in the right kidney. Ortho, Dr. Lopez concerned that her femur fracture was pathological due to malignancy. Bone biopsy done by Dr. Lopez however she feels that it may not be an adequate specimen, b/c it may not have been taken from in the malignant area Dr. Colón following, rec Bone Scan. 11/11/16- Bone Scan- No definitive increased tracer uptake in L5 where a lucency was seen in L5 on CT. Increased uptake in sacrum suggesting metastases 11/13- Path from bone fragments negative for malignancy, possible may have missed like previously suspected. Dr. Colón recs further evaluation and treatment including an MRI of abdomen/Pelvis which can be done in [place] in near future. Acute blood loss anemia due to blood loss inherent to orthopedic surgery- poa, active. s/p 1u RBC. - Hb has been stable. chronic diabetes uncontrolled -- Pt had elevated BG at admission -- Hold metformin by mouth at home medication -- A1c is ordered 8.2 -- currently on 17 units lantus BID+ 12 units TIDWM + low SSI -- Daily assessment of how much coverage she needed in last 24 hrs and adjusting dose to achieve optimal control. hypertension chronic presumed stable -- We will hold Benicar, plan to resume once BP stable. possible sleep apnea, chronic present on admission -- We will watch for oxygen desaturation nighttime especially with pain meds on board -- Continue to monitor -- needing 1-2L via [place] CODE STATUS: Full. Alternate decision-maker: Daughter DVT prophylaxis: Lovenox 40 mg subcutaneous daily x 3 weeks post op Disposition: Pt not from the [place]. May have to train/educate the family on how to work with patient to facilitate rehabilitation long-term before she can return to [place] for treatment of Renal Cancer. Pt will be cleared for discharge and expect 11/14 discharge to SNF. Oncology, Dr. Colón recs further evaluation and treatment including an MRI of abdomen/Pelvis which can be done in [place] in near future. New Diabetes Regimen- 17 units lantus BID+ 12 units TIDWM + low SSI. Can eventually add Metformin instead of Sliding scale insulin. DVT prophylaxis: Lovenox 40 mg subcutaneous daily x 3 weeks post op from 11/07/16 Follow up with Surgery at [facility] in 2 weeks with PA for staple removal , and at 6 weeks post op with Dr. Lopez with xrays if the patient has not returned to [place] VTE Prophylaxis: Sub-Q Enoxaparin VTE Mechanical Devices: Intermittant Pneumatic CD Resuscitation Status: CPR: Attempt Resuscitation ( ) Seth Holder MD Nov 13, 2016 18:09
--- NOTE | 2016-11-13 18:58 | NUR ---
Activity / Pain Pt was up with PT today. She is permitted to put 50% weight bearing on her left leg using a FWW. Pt prefers to stay in bed due to the pain with movement. Pt receiving good pain relief with 2 [place] tabs. Will encourage pt to get out of bed to use the BSC, however, pt is expected to discharge to a SNF tomorrow.
[2016-11-14 00:30] VITALS: BP 134/69; PULSE 81; RESP 16; O2SAT 98
[2016-11-14] MEDS: Sodium Chloride LOK Flush 10 mL Syringe IV SCH ×2 (00:30→09:35)
[2016-11-14 04:26] VITALS: BP 134/81; PULSE 88; RESP 18; O2SAT 100
--- NOTE | 2016-11-14 06:30 | NUR ---
blood glucose. HS reading 111. Currently on 17 units lantus tonight but BG levels trending down. Hopitalist notified and Lantus held. Then 0 B. not needing sliding scale coverage for this. Needs re-eval of dosage in morning.
[2016-11-14] MEDS: HYDROcodone-APAP 5-325 mg Tablet PO PRN ×3 (08:33→16:03)
[2016-11-14] MEDS: Insulin GLARgine 100 Unit/mL Syringe SUBQ SCH (09:40)
[2016-11-14] MEDS: Insulin LISPRO 300 Unit/3 mL Inj SUBQ SCH ×4 (09:41→12:25)
[2016-11-14] MEDS: Senna-Docusate 8.6-50 mg Tablet PO SCH (09:42)
--- NOTE | 2016-11-14 12:03 | PCM.DC.MED ---
Discharge Summary Date of Service Nov 14, 2016 Dates of Hospitalization Date of Hospital Admission Nov 07, 2016 at 13:35 Date of Discharge: Nov 14, 2016 Providers: Admitting Physician: Sarai Garcia DO Primary Care Physician: Trudy Attending Physician: Jama Alaniz MD Diagnosis at Time of Discharge Diagnosis at Time of Discharge Right Renal mass with osseous metastases to sacrum- poa, active- Left hip fracture s/p IM gerard placement left femur 11/07/16 , present on admission, active. Acute blood loss anemia due to blood loss inherent to orthopedic surgery- poa, active. Chronic diabetes uncontrolled Hypertension chronic presumed stable possible sleep apnea, chronic present on admission Procedures XRay, CTs & MRIs 11/11/16- Bone Scan- No definitive increased tracer uptake in L5 where a lucency was seen in L5 on CT. Increased uptake in sacrum suggesting metastases 1. No definitive increased tracer uptake in L5 where a lucency was seen in L5 on CT. Bone scan has decreased sensitivity to detect aggressive lytic bone lesions such as renal cell metastasis and multiple myeloma. An early metastasis could be missed on this bone scan. For this reason, one might want to consider MRI with and without contrast for further evaluation. 2. Increased uptake in sacrum suggesting metastases. Recommend radiographic correlation. 3. Increased uptake in the proximal left femoral shaft. The patient has recent open reduction and internal fixation of comminuted femoral shaft fracture. Brief History 65-year-old Mrs. John with past medical history of hypertension and diabetes, possible sleep apnea is presenting to the ER after suffering a fall this morning at 11 AM she states that she was trying to get up this stairs to go to a sidewalk when her legs gave in and she fell. She has had falls before but never this bad. She has never had fractures the exception of a coccygeal fracture during her second 30 years ago. She is endorsing severe pain as she was just moved from the ER to her hospital floor. She had to be medicated with morphine 2 mg for this interview to happen. This interview was done with the help of a phy therapist online. Patient states she does not have any altered sensation, she does feel that her left foot is a little bit colder than the right foot. She feels that her hypertension and diabetes are well controlled on her current medications, she has taken the am medications. She denies any heart history, thyroid disease. She does snore according to her daughter and may have sleep apnea. In the ER x-ray of left hip showed a comminuted proximal femoral shaft fracture. Films of both her femur are taken but results are pending at this time. Her blood glucose was 227 hemoglobin is 9.9 blood pressure was on the lower side 93/54. She was given given 1 mg of Dilaudid for pain control. Patient states that she has recently gotten over a cold in the September. Patient is admitted to the red team with orthopedic consult for management of left hip fracture Hospital Course This is a 65-year-old pleasant female from [place] who was visiting her daughter in the [place] when she suffered a left femur fracture. Admitted with orthopedic consult with Dr. Lopez s/p IM GERARD Left Femur on 11/07/16. Pt had Bone Scan on showing Increased uptake in sacrum suggesting metastases. 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 Ortho, Dr. Lopez concerned that her femur fracture was pathological due to malignancy. 11/11/16- Bone Scan- No definitive increased tracer uptake in L5 where a lucency was seen in L5 on CT. Increased uptake in sacrum suggesting metastases 11/13- Path from bone fragments negative for malignancy, possible may have missed malignant area like previously suspected. -Oncologist, Dr. Colón, upon discharge recommends further evaluation and treatment of cancer including an MRI of abdomen/Pelvis which can be done in [place] in near future. Left hip fracture s/p IM gerard placement left femur 11/07/16 , present on admission, active. Surgery discharge recommendations -Weightbearin% weightbearing with a front wheeled walker -DVT prophylaxis: Lovenox 40 mg subcutaneous daily x 3 weeks post op -Physical therapy for transfers, progressive ambulation, strengthening. -Follow up at [facility] in 2 weeks with PA for staple removal, and at 6 weeks post op with Dr. Lopez with xrays if the patient has not returned to [place]. Acute blood loss anemia due to blood loss inherent to orthopedic surgery- poa, active. s/p 1u RBC. - Hb has been stable. chronic diabetes uncontrolled -- Pt had elevated BG at admission -- Hold metformin by mouth at home medication -- A1c is ordered 8.2 -- currently on 17 units lantus BID+ 12 units TIDWM + low SSI hypertension chronic presumed stable -- We will hold Benicar, plan to resume once BP stable. possible sleep apnea, chronic present on admission -- We will watch for oxygen desaturation nighttime especially with pain meds on board -- Continue to monitor -- needing 1-2L via [place] CODE STATUS: Full. Alternate decision-maker: Daughter DVT prophylaxis: Lovenox 40 mg subcutaneous daily x 3 weeks post op Disposition: Pt not from the [place]. May have to train/educate the family on how to work with patient to facilitate rehabilitation long-term before she can return to [place] for treatment of Renal Cancer. Pt cleared for discharge to SNF- [facility]. - New Diabetes Regimen- 17 units lantus BID+ 12 units TIDWM + low SSI. Can eventually add Metformin instead of Sliding scale insulin. -Check blood sugar three times a day and evening. - Stopped home med Benicar as blood pressure was well controlled. Can restart if needed. - DVT prophylaxis: Lovenox 40 mg subcutaneous daily x 3 weeks post op from Follow up with Surgery at [facility] in 2 weeks with PA for staple removal , and at 6 weeks post op with Dr. Lopez with xrays if the patient has not returned to [place] -Oncologist, Dr. Colón, upon discharge recommends further evaluation and treatment of cancer including an MRI of abdomen/Pelvis which can be done in [place] in near future. Exam Vital Signs (Last) Date Time Temp Pulse Resp B/P Pulse Ox O2 Delivery O2 Flow Rate FiO2 11/14/16 04:26 36.9 88 18 134/81 100 Nasal Cannula 2.00 Test 11/07/16 12:02 11/07/16 13:45 11/07/16 15:35 11/10/16 05:28 Prothrombin Time 9.9sec (8.1-12.5) Prothromb Time International Ratio 0.93ratio Hemoglobin A1c 8.7% (4.8-5.6) Parathyroid Hormone (Intact) 54pg/mL (15-65) Vitamin D 25-Hydroxy 30.6ng/mL (30.0-100.0) Urine Color Yellow (YELLOW) Urine Appearance Clear (CLEAR,HAZY) Urine pH 5.0 (5.0-8.0) Urine Specific [place] 1.030 (1.003-1.035) Urine Protein Negativemg/dL (NEG,TRACE) Urine Glucose (UA) 100mg/dL (NEGATIVE) Urine Ketones Tracemg/dL (NEGATIVE) Urine Occult Blood Negative (NEGATIVE) Urine Nitrite Negative (NEGATIVE) Urine Bilirubin Negative (NEGATIVE) Urine Urobilinogen Normalmg/dL (NORMAL) Urine Leukocyte Esterase Negative (NEGATIVE) Urine RBC 0-2/hpf (0-2) Urine WBC 0-5/hpf (0-5) Urine Epithelial Cells Few/hpf (NONE-MOD) Urine Crystals None seen (NONE SEEN) Urine Bacteria None/hpf (NONE-FEW) Urine Hyaline Casts None/lpf (NONE) Urine Granular Casts None seen (NONE SEEN) Urine Waxy Casts None seen (NONE SEEN) Urine Red Blood Cell Casts None seen (NONE SEEN) Urine White Blood Cell Casts None seen (NONE SEEN) Urine Mucus None seen (None Seen) Urine Trichomonas None seen (NONE SEEN) Urine Yeast None (NONE SEEN) Urinalysis Comment None Urine Culture Reflexed Not indicated Total Bilirubin 0.3mg/dL (0.0-1.2) Aspartate Amino Transf (AST/SGOT) 27U/L (0-50) Alanine Aminotransferase (ALT/SGPT) 9U/L (0-32) Alkaline Phosphatase 69U/L (25-165) Total Protein 5.7g/dL (6.4-8.4) Albumin 3.3g/dL (3.4-5.0) Test 11/12/16 05:40 White Blood Count 8.0th/mm3 (3.8-10.1) Red Blood Count 2.68mil/mm3 (3.90-5.20) Hemoglobin 8.2g/dL (12.0-15.6) Hematocrit 24.9% (35.0-46.0) Mean Corpuscular Volume 92.9fL (81-100) Mean Corpuscular Hemoglobin 30.6pg (27.0-35.0) Mean Corpuscular Hemoglobin Concent 32.9% (32.0-37.0) Red Cell Distribution Width 13.9% (12.3-15.4) Platelet Count 288bil/L (150-400) Neutrophils (%) (Auto) 72.3% (40-74) Lymphocytes (%) (Auto) 12.1% (14-46) Monocytes (%) (Auto) 10.0% (4-12) Eosinophils (%) (Auto) 4.9% (0-5) Basophils (%) (Auto) 0.2% (0-3) Sodium Level 138mEq/L (134-144) Potassium Level 4.3mEq/L (3.5-5.2) Chloride Level 100mEq/L (97-108) Carbon Dioxide Level 28mmol/L (18-29) Blood Urea Nitrogen 14mg/dL (8-27) Creatinine 0.64mg/dL (0.57-1.00) Estimat Glomerular Filtration Rate 133mL/min (>59) Glucose Level 158mg/dL (60-99) Calcium Level 8.4mg/dL (8.5-10.1) Discharge Medications Discharge Medications Enoxaparin Sodium (Enoxaparin Sodium) 40 Mg/0.4 Ml Syringe 40 MG SUBQ Q24 Prescribed by: JAMA ALANIZ MD Insulin Glargine (Lantus U100 Insulin Vial) 100 Unit/Ml Vial 17 UNIT SUBQ BID Prescribed by: JAMA ALANIZ MD Insulin Human Lispro (HumaLOG U100 Insulin Vial) 100 Unit/Ml Unit 12 UNIT SUBQ TIDAC Check blood sugars before meals and at bedtime. Use correction factor only before meals. Blood Sugar Lispro Correction: <151, 0 units; 151-175, 1 unit; 176-200, 2 units; 201-225, 3 units; 226-250, 4 units; 251-275, 5 units; 276-300 , 6 units; 301-325, 7 units; 326-350, 8 units; 351-375, 9 units; 376-400, 10 units; >400, 12 units. Prescribed by: JAMA ALANIZ MD Insulin Human Lispro (HumaLOG U100 Insulin Vial) 100 Unit/Ml Unit 0 UNIT SUBQ WMHS Check blood sugars before meals and at bedtime. Use correction factor only before meals. Blood Sugar Lispro Correction: <151, 0 units; 151-175, 1 unit; 176-200, 2 units; 201-225, 3 units; 226-250, 4 units; 251-275, 5 units; 276-300 , 6 units; 301-325, 7 units; 326-350, 8 units; 351-375, 9 units; 376-400, 10 units; >400, 12 units. Prescribed by: JAMA ALANIZ MD As needed Hydrocodone-Acetaminophen 5-325 mg (Hydrocodone-Acetaminophen 5-325 mg) 1 Each Tablet 1-2 TABLET PO Q4H PRN PRN For Moderate Pain Prescribed by: JAMA ALANIZ MD Hydroxyzine Pamoate (HydrOXYzine Pamoate) 25 Mg Capsule 25 MG PO Q4H PRN PRN For Spasm and/or Restlessness Prescribed by: JAMA ALANIZ MD oxyCODONE (oxyCODONE) 5 Mg Tablet 5-10 MG PO Q4H PRN PRN For Severe Pain Prescribed by: JAMA ALANIZ MD Durable Medical Equipment Syring W-O Ndl,Disp,Insul, 1Ml (Insulin Syringe) 1 Each Disp.syrin 1 EACH [facility] ( DME) Prescribed by: JAMA ALANIZ MD Additional med instructions - New Diabetes Regimen- 17 units lantus BID+ 12 units TIDWM + low SSI. Can eventually add Metformin instead of Sliding scale insulin. -Check blood sugar three times a day and evening. - Stopped home med Benicar as blood pressure was well controlled. Can restart if needed. - DVT prophylaxis: Lovenox 40 mg subcutaneous daily x 3 weeks post op from , then start ASA 325 mg EC PO for 6 weeks totalling 6 weeks. Followup Plan Disposition: Pt cleared for discharge to [facility]. Patient not from the [facility]. May have to train/educate the family on how to work with patient to facilitate rehabilitation long-term before she can return to [place] for treatment of Renal Cancer. Follow-up plan Follow up with Surgery at [facility] in 2 weeks with PA for staple removal , and at 6 weeks post op with Dr. Lopez with xrays if the patient has not returned to [place] -Oncologist, Dr. Colón, upon discharge recommends further evaluation and treatment of cancer including an MRI of abdomen/Pelvis which can be done in [place] in near future. Discharge Diet: Diabetic Provider: Cachorro Lopez MD Follow-up in: 2 weeks (Ask for appointment with surgical PA) Time spent Greater than 30 minutes was spent in preparation of discharge with greater than 50% of that time dedicated to patient counseling and coordination of care. Jama Alaniz MD Nov 14, 2016 12:03
[2016-11-14] MEDS ORDERED: HYDR-3797 PO (12:14)
[2016-11-14] MEDS ORDERED: SYRI-1324 MC (12:14)
[2016-11-14] MEDS ORDERED: ENOX40DI8 SUBQ (12:14)
[2016-11-14] MEDS ORDERED: OXYC5TAB72 PO (12:14)
[2016-11-14] MEDS ORDERED: INSLIS SUBQ ×2 (12:14)
[2016-11-14] MEDS ORDERED: INSU100V7 SUBQ (12:14)
[2016-11-14] MEDS ORDERED: HYDR-4003 PO (12:14)
--- NOTE | 2016-11-14 12:15 | PCM.DIMED ---
Discharge Instructions Date of Service Nov 14, 2016 Dates of Hospitalization Nov 07, 2016 at 13:35 Discharge Diagnosis Discharge Diagnosis Right Renal mass with osseous metastases to sacrum- poa, active- Left hip fracture s/p IM harvey placement left femur 11/07/16 , present on admission, active. Acute blood loss anemia due to blood loss inherent to orthopedic surgery- poa, active. Chronic diabetes uncontrolled Hypertension chronic presumed stable possible sleep apnea, chronic present on admission Medication Instructions Additional med instructions - New Diabetes Regimen- 17 units lantus BID+ 12 units TIDWM + low SSI. Can eventually add Metformin instead of Sliding scale insulin. -Check blood sugar three times a day and evening. - Stopped home med Benicar as blood pressure was well controlled. Can restart if needed. - DVT prophylaxis: Lovenox 40 mg subcutaneous daily x 3 weeks post op from , then start ASA 325 mg EC PO for 6 weeks totalling 6 weeks. Test Results Test Results [facility] Diagnostic Imaging Department [place], [place] [id number] Patient Name: CHERYL ROSEN MR#: [id number] Location: [facility] Ordering Phys: Sarai Gracia DO Date of Service: 11/09/16 0935 PROCEDURE: CT CHEST AND ABDOMEN WITH CONTRAST ([id number]) INDICATIONS: 66 year-old woman with suspected malignancy. CHEST: Lungs and pleura: There is a 3 mm nodule in the right upper lobe (series 3 image 17). A few small nodules in the left lung, measuring 3-4 mm (series 3, image 25, 30 and 42). A small groundglass opacities noted in the right lower lobe.. No pleural effusions or pneumothorax. Central and peripheral airways appear patent and normal in caliber. Mediastinum: Heart size is normal. No pericardial effusion. No mediastinal or hilar adenopathy by size criteria. Thoracic aorta and central pulmonary arteries are normal in size. Esophagus is normal in caliber. There is a small hiatal hernia. Chest wall: No axillary or supraclavicular adenopathy by size criteria. Thyroid gland is normal. ABDOMEN: Solid organs: There is a heterogeneous mass in the right kidney involving the superior pole measuring 6.2 x 4.6 x 4.9 cm, highly suspicious for renal cell carcinoma. The renal vein and inferior vena cava are patent. No enlarged perirenal lymph node. A 1 cm low-density nodule in the inferior pole of left kidney is likely a cyst. There is a 4 mm nonobstructive stone the left kidney. No hydronephrosis. Liver and spleen are normal in size and enhancement. Gallbladder is normal. Biliary system is non dilated. Pancreas enhances normally. No adrenal nodules. Peritoneum and bowel: Bowel loops demonstrate normal wall thickness and caliber. No free fluid or air. Nodes and vessels: No retroperitoneal or mesenteric adenopathy by size criteria. Aorta and inferior vena cava are normal in size. Bones: There is a 6 mm lucency in the L5 vertebral body. No vertebral body compression fractures. Miscellaneous: No ventral hernias. IMPRESSION: 1. A large right renal mass highly suspicious for renal cell carcinoma. 2. A small lucency in the L5 vertebral body, which could represent early metastasis. 3. A 4 mm nonobstructive left renal stone. 4. A 1 cm left renal cyst. 5. Several subcentimeter lung nodules bilaterally. Recommend short interval followup CT in 3 months Dictated by: Santo Clark M.D. on 11/09/2016 at 14:21 Approved by: Santo Clark M.D. on 11/09/2016 at 14:42 [facility] Diagnostic Imaging Department [place], [place] [id number] Patient Name: CHERYL ROSEN MR#: [id number] Location: [facility] Ordering Phys: Trent Colón MD Date of Service: 11/11/16 1532 PROCEDURE: NM WHOLE BODY BONE SCAN ([id number]) INDICATIONS: RENAL CANCER. SUSPECT BONE METASTASES. COMPARISON: [facility], CR, XR HIP 2VW LT, 11/07/2016, 12:06. [facility], CR, XR FEMUR 2VW RT, 11/07/2016, 13:58. [facility], CR, XR FEMUR 1VW LT, 11/08/2016, 9:16. [facility], CR, XR FEMUR 2VW LT, 11/08/2016, 16:03. [facility], CT, CT CHEST ABD W CON , 11/09/2016, 13:34. FINDINGS: There is increased activity in sacrum involving the sacral body. No definitive abnormal uptake in L5. No lesions are identified in skull, sternum, scapulae and ribs. There is increased uptake in the proximal left femur. The patient had recent open reduction internal fixation of comminuted left femoral fracture. There are foci of low grade increased uptake in cervical, thoracic and lumbar spine with distribution indistinguishable from degenerative disc and facet disease. There is increased periarticular activity involving shoulders bilaterally, wrists bilaterally, hips bilaterally, knees bilaterally, ankles and feet bilaterally, compatible with degenerative/arthritic changes. There are 2 kidneys, normal in size and position. There is normal soft tissue uptake. IMPRESSION: 1. No definitive increased tracer uptake in L5 where a lucency was seen in L5 on CT. Bone scan has decreased sensitivity to detect aggressive lytic bone lesions such as renal cell metastasis and multiple myeloma. An early metastasis could be missed on this bone scan. For this reason, one might want to consider MRI with and without contrast for further evaluation. 2. Increased uptake in sacrum suggesting metastases. Recommend radiographic correlation. 3. Increased uptake in the proximal left femoral shaft. The patient has recent open reduction and internal fixation of comminuted femoral shaft fracture. Dictated by: Santo Clark M.D. on 11/11/2016 at 14:24 Approved by: Santo Clark M.D. on 11/11/2016 at 14:34 Diet Discharge Diet: Diabetic Patient Instructions Follow-up plan Follow up with Surgery at [facility] in 2 weeks with PA for staple removal , and at [address] Lopez with xrays if the patient has not returned to [place] -Oncologist, Dr. Colón, upon discharge recommends further evaluation and treatment of cancer including an MRI of abdomen/Pelvis which can be done in [place] in near future. Provider: Cachorro Lopez MD Follow-up in: 2 weeks (Ask for appointment with surgical PA) Seth Holder MD Nov 14, 2016 12:14
[2016-11-14 12:55] VITALS: BP 115/75; PULSE 84; RESP 18; O2SAT 96
--- NOTE | 2016-11-14 14:36 | NUR ---
Social Work: Discharge/Multidisciplinary Rounds D: EMR reviewed. Pt is on day 7 of hospitalization. Pt discussed in multidisciplinary rounds and is medically stable for discharge to [facility] where she has been accepted with Dr. Alberts to follow. Raphael with [facility] called pt's daughter yesterday at 1800 and worked out a payment agreement for pt's stay. Raphael from [facility] confirmed [facility] will transport pt today at 1545. Discharge ppw, rx, and PASRR faxed to [facility]. Transfer packet completed and left at RN station, UA/RN updated on transfer time. Pt and daughter updated on transfer time and discharge plan. All updated and agreeable to plan. A: Pt for whom a SNF is medically necessary P: Pt to transfer to [facility] via [facility] today at 1545. Discharge ppw, rx, and PASRR faxed to [facility]. Transfer packet complete and left at RN station, UA/RN updated on transfer time. Pt updated on transfer time and discharge plan. All updated and agreeable to plan. Beatriz Dotson MSW
--- NOTE | 2016-11-14 15:54 | NUR ---
GI mild nausea this am, resolved quickly with Zofran 8mg IV. abd soft, BTs hypo, has not passed flatus yet. Pt ambulating in halls with Addendum: 11/14/16 at 1628 by BARBIE JONES RN disregard above note, wrong chart
--- NOTE | 2016-11-14 16:28 | NUR ---
discharge pt discharged to [facility] per saroj, daughter following in car, report called to VANDANA Boyd, admission nurse. She is going to rehabilitate at [facility], and have f/u appt with Dr Lopez's office on Nov 25 or for f/u and staple removal, when she is well enough to travel she will return to [place] for oncology care
== END 2016-11-14 16:13 | DRG 481 ==
LOC: EDBD 11:53 → SED 11:53 → OSC 13:35
PROVIDERS: ADMIT Family Medicine; ATTEND Family Medicine
PROC: 0QS906Z Reposition Left Femoral Shaft with Intramedullary Internal Fixation Device, Open Approach (ICD-10-PCS; principal; 2016-11-08 11:00)
PROC: 30233N1 Transfusion of Nonautologous Red Blood Cells into Peripheral Vein, Percutaneous Approach (ICD-10-PCS; 2016-11-11)
DX: S72.352A Displaced comminuted fracture of shaft of left femur, initial encounter for closed fracture (principal); D62 Acute posthemorrhagic anemia; C79.51 Secondary malignant neoplasm of bone; W10.8XXA Fall (on) (from) other stairs and steps, initial encounter; Y93.01 Activity, walking, marching and hiking; Y92.89 Other specified places as the place of occurrence of the external cause; E11.65 Type 2 diabetes mellitus with hyperglycemia; Z79.84 Long term (current) use of oral hypoglycemic drugs; I10 Essential (primary) hypertension; G47.30 Sleep apnea, unspecified; N28.89 Other specified disorders of kidney and ureter